=== PATIENT | female | born 1945 | race Caucasian/White ===

== ENCOUNTER 2017-11-04 07:52 | Emergency (ER) | payer MEDICARE ==
--- NOTE | 2017-11-04 07:53 | UC ---
Shortness of Breath HPI - HPI Summary HPI Summary: 72 year old female presents with severe shortness of breath. - History of Current Complaint Stated Complaint: SOB Time Seen by Provider: 11/04/17 07:53 Hx Obtained From: Patient Onset/Duration: Sudden Onset Current Severity: Moderate Aggrevating Factors: Deep Breaths Alleviating Factors: Bronchodilators Associated Signs & Symptoms: Positive: Cough (Productive) - Allergy/Home Medications Allergies/Adverse Reactions: Allergies Allergy/AdvReac Type Severity Reaction Status Date / Time No Known Allergies Allergy Verified 11/04/17 08:04 PMH/Surg Hx/FS Hx/Imm Hx Previously Healthy: Yes Other History Of: Negative For: HIV, Hepatitis B, Hepatitis C, Anticoagulant Therapy - Surgical History Surgical History: Yes Surgery Procedure, Year, and Place: tubal, teeth extraction, c section - Family History Known Family History: Positive: None, Cardiac Disease Negative: Hypertension - Social History Alcohol Use: None Substance Use Type: None Smoking Status (MU): Former Smoker Type: Cigarettes Amount Used/How Often: 6 cigs per day Length of Time of Smoking/Using Tobacco: 47 years Have You Smoked in the Last Year: No When Did the Patient Quit Smoking/Using Tobacco: 14 MOS AGO Household Exposure Type: Cigarettes Review of Systems Constitutional: Negative Skin: Negative Eyes: Negative ENT: Negative Respiratory: Shortness Of Breath, Cough Cardiovascular: Negative Gastrointestinal: Negative Genitourinary: Negative Motor: Negative Neurovascular: Negative Musculoskeletal: Negative Neurological: Negative Psychological: Negative All Other Systems Reviewed And Are Negative: Yes Physical Exam Triage Information Reviewed: Yes Vital Signs Reviewed: Yes Eye Exam: Normal ENT: Positive: Pharyngeal erythema, Nasal congestion, Nasal drainage, Sinus tenderness Dental Exam: Normal Neck exam: Normal Neck: Positive: 1 Respiratory: Positive: Respiratory distress, Rhonchi, Wheezing Cardiovascular Exam: Normal Abdominal Exam: Normal Musculoskeletal Exam: Normal Neurological Exam: Normal Psychological Exam: Normal Skin Exam: Normal Shortness of Breath Dx - Differential Dx/Diagnosis Provider Diagnoses: cough. copd exacerbation Discharge - Discharge Plan Condition: Stable Disposition: OTHER Discharge Disposition Comment: patient suggested to go to the er Patient Education Materials: COPD (Chronic Obstructive Pulmonary Disease) (ED) , Dyspnea (ED) Referrals: Gabriela AQUINO,King Loya [Primary Care Provider] - Additional Instructions: patient suggested to go to the er for severe copd exacerbation
[2017-11-04] MEDS ORDERED: methylPREDNISolone 125 MG* 2 ML VIAL IM ONE (07:56)
[2017-11-04] MEDS ORDERED: Albuterol/Ipratropium NEB.SOL* Albuterol 2.5 MG/Ipratropium 0.5 MG 3 ML INH ONE (07:56)
[2017-11-04 08:03] VITALS: BP 163/88
[2017-11-04] MEDS ORDERED: Albuterol 2.5 MG/3 ML NEB.SOL* (0.083%) INH ONE ×2 (08:25→08:50)
== END 2017-11-04 08:38 ==
LOC: UCEAST 07:52
DX: J44.1 Chronic obstructive pulmonary disease with (acute) exacerbation (principal); R05 Cough; Z87.891 Personal history of nicotine dependence
CPT/HCPCS: 96372; 99213; A9270-GY; G0463; J2930

== ENCOUNTER 2017-11-04 09:23 | Inpatient (IN) | payer MEDICARE ==
[2017-11-04] MEDS ORDERED: methylPREDNISolone 125 MG* 2 ML VIAL IV ONE (09:35)
[2017-11-04 10:08] LABS: ABS Basophils 0.1 10^3/ul (0-0.2); ABS Eosinophils 0.1 10^3/ul (0-0.6); ABS Lymphocytes 0.8 10^3/ul (1.0-4.8); ABS Monocytes 0.7 10^3/ul (0-0.8); ABS Neutrophils 11.9 10^3/ul (1.5-7.7); ABS Nucleated RBC 0.01 10^3/ul; Eosinophil % 0.6 % (0-6); Hematocrit 40 % (35-47); Hemoglobin 13.4 g/dl (12.0-16.0); Lymphocyte % 6.1 % (25-47); Mean Corpuscular HGB Conc 33 g/dl (31-36); Mean Corpuscular Hemoglobin 29 pg (27-31); Mean Corpuscular Volume 87 fL (80-97); Mean Platelet Volume 7 um3 (7.4-10.4); Nucleated Red Blood Cells % 0.1; Platelet Count 239 10^3/ul (150-450); Red Blood Count 4.63 10^6/ul (4.0-5.4); Red Cell Distribution Width 14 % (10.5-15); White Blood Count 13.5 10^3/ul (3.5-10.8)
[2017-11-04 10:17] LABS: Urine Appearance Clear; Urine Blood Negative (Negative); Urine Color Yellow; Urine Ketones Trace (Negative); Urine Protein Negative (Negative); Urine Specific Gravity 1.017 (1.010-1.030); Urine Urobilinogen Negative (Negative)
[2017-11-04] MEDS: Albuterol/Ipratropium NEB.SOL* Albuterol 2.5 MG/Ipratropium 0.5 MG 3 ML INH SCH ×2 (10:24→10:25)
--- NOTE | 2017-11-04 10:30 | RAD ---
INDICATION: Shortness of breath. COMPARISON: Similar chest x-ray September 03, 2016 TECHNIQUE: PA and lateral views of the chest were obtained. FINDINGS: The heart and mediastinum are normal in size and contour. Similar to the prior chest x-ray, the lungs appear hyperaerated and the AP view, there is an increased retrosternal airspace and flattened diaphragm. There is faintly visible patchy density at the lateral right upper lung not definitely seen on the previous chest x-ray. Visualized bones are normal for the patient's age. There is no radiographic evidence of free air beneath the diaphragm IMPRESSION: CHRONIC CHEST X-RAY FINDINGS COULD BE CONSISTENT WITH THE STIGMATA OF OBSTRUCTIVE PULMONARY DISEASE. THERE IS QUESTIONABLE INTERVAL DEVELOPMENT OF PATCHY INFILTRATE AT THE RIGHT UPPER LOBE WHICH COULD BE ATYPICAL PNEUMONIA ACCORDING TO THIS PATIENT'S DEMOGRAPHIC.
[2017-11-04] MEDS ORDERED: Levofloxacin 750 MG IVPREMIX(* 750 MG/150 ML BAG IVPB ONE (11:03)
[2017-11-04] MEDS ORDERED: guaiFENesin LIQ* 100 MG/5 ML UDC PO PRN (12:40)
[2017-11-04] MEDS ORDERED: Albuterol/Ipratropium NEB.SOL* Albuterol 2.5 MG/Ipratropium 0.5 MG 3 ML INH PRN (12:40)
[2017-11-04] MEDS ORDERED: Acetaminophen TAB* 325 MG PO PRN (12:40)
[2017-11-04] MEDS ORDERED: NS 0.9% 1000 ML* 1,000 ML IV SCH ×2 (12:45→19:45)
[2017-11-04] MEDS: NS 0.9% 1000 ML* 2,000 ML IV ONE ×2 (12:46→15:23)
--- NOTE | 2017-11-04 13:16 | ED ---
Lewis Rodriguez Tecjoon, scribed for Santana Crowe MD on 11/04/17 at 1005 . HPI Cardiac - HPI Summary HPI Summary: This patient is a 72 year old female presenting to [facility] with a chief complaint of SOB since 4 days ago. Patient states he was referred to the ED by [facility]. Symptoms aggravated by exertion. Symptoms alleviated by sitting still. Patient additionally reports a non-productive cough, mild chest pain. Patient denies fever. Right before exam, nurse states that her O2 saturation reach 82%. Patient has a history of COPD and asthma. Patient received 2 Albuterol treatment in [facility]. care. - History of Current Complaint Chief Complaint: EDShortnessOfBreath Stated Complaint: DIFFICULTY BREATHING Time Seen by Provider: 11/04/17 09:35 Hx Obtained From: Patient Onset/Duration: Started Days Ago, Still Present - 4 Timing: Intermittent Current Severity: Mild Pain Intensity: 0 Pain Scale Used: 0-10 Numeric Chest Pain Location: Left Anterior Aggravating Factor(s): Exertion Alleviating Factor(s): Rest Associated Signs and Symptoms: Positive: Negative - fever, Other: - non- productive cough, mild chest pain - Allergy/Home Medications Allergies/Adverse Reactions: Allergies Allergy/AdvReac Type Severity Reaction Status Date / Time No Known Allergies Allergy Verified 11/04/17 09:32 Home Medications: Home Medications Albuterol HFA INHALER* 2 puff INH Q4HR PRN 11/04/17 [History Confirmed 11/04/17] Symbicort 160/4.5 (NF) 2 puff INH BID 11/04/17 [History Confirmed 11/04/17] PMH/Surg Hx/FS Hx/Imm Hx Previously Healthy: No Endocrine/Hematology History: Denies: Hx Anticoagulant Therapy, Hx Diabetes, Hx Thyroid Disease Cardiovascular History: Denies: Hx Congestive Heart Failure, Hx Deep Vein Thrombosis, Hx Hypertension , Hx Myocardial Infarction, Hx Pacemaker/ICD Respiratory History: Reports: Hx Asthma, Hx Chronic Obstructive Pulmonary Disease (COPD) Denies: Hx Lung Cancer, Hx Pneumonia, Hx Pulmonary Embolism GI History: Reports: Other GI Disorders - wt loss Denies: Hx Gall Bladder Disease, Hx Gastrointestinal Bleed, Hx Ulcer, Hx Urosepsis History: Denies: Hx Kidney Stones, Hx Renal Disease Musculoskeletal History: Reports: Hx Rheumatoid Arthritis - not on meds Neurological History: Reports: Hx Migraine Denies: Hx Dementia, Hx Seizures, Hx Transient Ischemic Attacks (TIA) Psychiatric History: Denies: Hx Anxiety, Hx Depression, Hx Schizophrenia, Hx Bipolar Disorder - Surgical History Surgery Procedure, Year, and Place: tubal, teeth extraction, c section Infectious Disease History: No Infectious Disease History: Denies: Hx Clostridium Difficile, Hx Hepatitis, Hx Human Immunodeficiency Virus (HIV), Hx of Known/Suspected MRSA, Hx Shingles, Hx Tuberculosis, Hx Known/ Suspected VRE, Hx Known/Suspected VRSA, History Other Infectious Disease, Traveled Outside the [place] in Last 30 Days - Family History Known Family History: Positive: Cardiac Disease Negative: Hypertension - Social History Alcohol Use: None Hx Substance Use: No Substance Use Type: Reports: None Hx Tobacco Use: Yes Smoking Status (MU): Former Smoker Type: Cigarettes Amount Used/How Often: 6 cigs per day Length of Time of Smoking/Using Tobacco: 47 years Have You Smoked in the Last Year: No Review of Systems Negative: Fever Positive: Chest Pain Positive: Shortness Of Breath, Cough All Other Systems Reviewed And Are Negative: Yes Physical Exam - Summary Physical Exam Summary: VITAL SIGNS: Reviewed. GENERAL: Patient is a well-developed and nourished female who is lying comfortable in the stretcher. Patient is not in any acute respiratory distress. HEAD AND FACE: No signs of trauma. No ecchymosis, hematomas or skull depressions. No sinus tenderness. EYES: PERRLA, EOMI x 2, No injected conjunctiva, no nystagmus. EARS: Hearing grossly intact. Ear canals and tympanic membranes are within normal limits. MOUTH: Oropharynx within normal limits. NECK: Supple, trachea is midline, no adenopathy, no JVD, no carotid bruit, no c- spine tenderness, neck with full ROM. CHEST: Symmetric, no tenderness at palpation LUNGS: Bilateral wheezing. CVS: Regular rate and rhythm, S1 and S2 present, no murmurs or gallops appreciated. ABDOMEN: Soft, non-tender. No signs of distention. No rebound no guarding, and no masses palpated. Bowel sounds are normal. EXTREMITIES: FROM in all major joints, no edema, no cyanosis or clubbing. NEURO: Alert and oriented x 3. No acute neurological deficits. Speech is normal and follows commands. SKIN: Dry and warm Triage Information Reviewed: Yes Vital Signs On Initial Exam: Initial Vitals Temp Pulse Resp BP Pulse Ox 98.6 F 112 18 139/66 93 11/04/17 09:28 11/04/17 09:28 11/04/17 09:28 11/04/17 09:28 11/04/17 09:28 Vital Signs Reviewed: Yes - Dania Coma Scale Coma Scale Total: 15 Diagnostics - Vital Signs Vital Signs Temp Pulse Resp BP Pulse Ox 11/04/17 09:45 14 11/04/17 09:42 117 149/77 89 11/04/17 09:28 98.6 F 112 18 139/66 93 - Laboratory Lab Results: Lab Results 11/04/17 11/04/17 11/04/17 Range/Units 09:58 09:58 09:58 WBC (3.5-10.8) 10^3/ul RBC (4.0-5.4) 10^6/ul Hgb (12.0-16.0) g/dl Hct (35-47) % MCV (80-97) fL MCH (27-31) pg MCHC (31-36) g/dl RDW (10.5-15) % Plt Count (150-450) 10^3/ul MPV (7.4-10.4) um3 Neut % (Auto) (38-83) % Lymph % (Auto) (25-47) % [place] % (Auto) (1-9) % Eos % (Auto) (0-6) % Baso % (Auto) (0-2) % Absolute Neuts (auto) (1.5-7.7) 10^3/ul Absolute Lymphs (auto) (1.0-4.8) 10^3/ul Absolute Monos (auto) (0-0.8) 10^3/ul Absolute Eos (auto) (0-0.6) 10^3/ul Absolute Basos (auto) (0-0.2) 10^3/ul Absolute Nucleated RBC 10^3/ul Nucleated RBC % APTT 30.7 (26.0-36.3) seconds Sodium 136 (133-145) mmol/L Potassium 3.8 (3.5-5.0) mmol/L Chloride 100 L (101-111) mmol/L Carbon Dioxide 29 (22-32) mmol/L Anion Gap 7 (2-11) mmol/L BUN 7 (6-24) mg/dL Creatinine 0.61 (0.51-0.95) mg/dL Est GFR ( Amer) 124.7 (>60) Est GFR (Non-Af Amer) 97.0 (>60) BUN/Creatinine Ratio 11.5 (8-20) Glucose 134 H (70-100) mg/dL Lactic Acid (0.5-2.0) mmol/L Calcium 9.3 (8.6-10.3) mg/dL Total Bilirubin 0.40 (0.2-1.0) mg/dL AST 26 (13-39) U/L ALT 29 (7-52) U/L Alkaline Phosphatase 82 (34-104) U/L Troponin I 0.01 (<0.04) ng/mL C-Reactive Protein 69.09 H (< 5.00) mg/L B-Natriuretic Peptide 73 ( - 100) pg/mL Total Protein 7.3 (6.4-8.9) g/dL Albumin 3.9 (3.2-5.2) g/dL Globulin 3.4 (2-4) g/dL Albumin/Globulin Ratio 1.1 (1-3) Urine Color Urine Appearance Urine pH (5-9) Ur Specific Elmo (1.010-1.030) Urine Protein (Negative) Urine Ketones (Negative) Urine Blood (Negative) Urine Nitrate (Negative) Urine Bilirubin (Negative) Urine Urobilinogen (Negative) Ur Leukocyte Esterase (Negative) Urine Glucose (Negative) Influenza A (Rapid) (Negative) Influenza B (Rapid) (Negative) 11/04/17 11/04/17 11/04/17 Range/Units 09:58 09:58 09:58 WBC 13.5 H (3.5-10.8) 10^3/ul RBC 4.63 (4.0-5.4) 10^6/ul Hgb 13.4 (12.0-16.0) g/dl Hct 40 (35-47) % MCV 87 (80-97) fL MCH 29 (27-31) pg MCHC 33 (31-36) g/dl RDW 14 (10.5-15) % Plt Count 239 (150-450) 10^3/ul MPV 7 L (7.4-10.4) um3 Neut % (Auto) 87.8 H (38-83) % Lymph % (Auto) 6.1 L (25-47) % [place] % (Auto) 4.9 (1-9) % Eos % (Auto) 0.6 (0-6) % Baso % (Auto) 0.6 (0-2) % Absolute Neuts (auto) 11.9 H (1.5-7.7) 10^3/ul Absolute Lymphs (auto) 0.8 L (1.0-4.8) 10^3/ul Absolute Monos (auto) 0.7 (0-0.8) 10^3/ul Absolute Eos (auto) 0.1 (0-0.6) 10^3/ul Absolute Basos (auto) 0.1 (0-0.2) 10^3/ul Absolute Nucleated RBC 0.01 10^3/ul Nucleated RBC % 0.1 APTT (26.0-36.3) seconds Sodium (133-145) mmol/L Potassium (3.5-5.0) mmol/L Chloride (101-111) mmol/L Carbon Dioxide (22-32) mmol/L Anion Gap (2-11) mmol/L BUN (6-24) mg/dL Creatinine (0.51-0.95) mg/dL Est GFR ( Amer) (>60) Est GFR (Non-Af Amer) (>60) BUN/Creatinine Ratio (8-20) Glucose (70-100) mg/dL Lactic Acid 1.1 (0.5-2.0) mmol/L Calcium (8.6-10.3) mg/dL Total Bilirubin (0.2-1.0) mg/dL AST (13-39) U/L ALT (7-52) U/L Alkaline Phosphatase (34-104) U/L Troponin I (<0.04) ng/mL C-Reactive Protein (< 5.00) mg/L B-Natriuretic Peptide ( - 100) pg/mL Total Protein (6.4-8.9) g/dL Albumin (3.2-5.2) g/dL Globulin (2-4) g/dL Albumin/Globulin Ratio (1-3) Urine Color Yellow Urine Appearance Clear Urine pH 6.0 (5-9) Ur Specific Elmo 1.017 (1.010-1.030) Urine Protein Negative (Negative) Urine Ketones Trace H (Negative) Urine Blood Negative (Negative) Urine Nitrate Negative (Negative) Urine Bilirubin Negative (Negative) Urine Urobilinogen Negative (Negative) Ur Leukocyte Esterase Negative (Negative) Urine Glucose Negative (Negative) Influenza A (Rapid) (Negative) Influenza B (Rapid) (Negative) 11/04/17 Range/Units 10:22 WBC (3.5-10.8) 10^3/ul RBC (4.0-5.4) 10^6/ul Hgb (12.0-16.0) g/dl Hct (35-47) % MCV (80-97) fL MCH (27-31) pg MCHC (31-36) g/dl RDW (10.5-15) % Plt Count (150-450) 10^3/ul MPV (7.4-10.4) um3 Neut % (Auto) (38-83) % Lymph % (Auto) (25-47) % [place] % (Auto) (1-9) % Eos % (Auto) (0-6) % Baso % (Auto) (0-2) % Absolute Neuts (auto) (1.5-7.7) 10^3/ul Absolute Lymphs (auto) (1.0-4.8) 10^3/ul Absolute Monos (auto) (0-0.8) 10^3/ul Absolute Eos (auto) (0-0.6) 10^3/ul Absolute Basos (auto) (0-0.2) 10^3/ul Absolute Nucleated RBC 10^3/ul Nucleated RBC % APTT (26.0-36.3) seconds Sodium (133-145) mmol/L Potassium (3.5-5.0) mmol/L Chloride (101-111) mmol/L Carbon Dioxide (22-32) mmol/L Anion Gap (2-11) mmol/L BUN (6-24) mg/dL Creatinine (0.51-0.95) mg/dL Est GFR ( Amer) (>60) Est GFR (Non-Af Amer) (>60) BUN/Creatinine Ratio (8-20) Glucose (70-100) mg/dL Lactic Acid (0.5-2.0) mmol/L Calcium (8.6-10.3) mg/dL Total Bilirubin (0.2-1.0) mg/dL AST (13-39) U/L ALT (7-52) U/L Alkaline Phosphatase (34-104) U/L Troponin I (<0.04) ng/mL C-Reactive Protein (< 5.00) mg/L B-Natriuretic Peptide ( - 100) pg/mL Total Protein (6.4-8.9) g/dL Albumin (3.2-5.2) g/dL Globulin (2-4) g/dL Albumin/Globulin Ratio (1-3) Urine Color Urine Appearance Urine pH (5-9) Ur Specific Elmo (1.010-1.030) Urine Protein (Negative) Urine Ketones (Negative) Urine Blood (Negative) Urine Nitrate (Negative) Urine Bilirubin (Negative) Urine Urobilinogen (Negative) Ur Leukocyte Esterase (Negative) Urine Glucose (Negative) Influenza A (Rapid) Negative (Negative) Influenza B (Rapid) Negative (Negative) Result Diagrams: 11/04/17 09:58 11/04/17 09:58 Lab Statement: Any lab studies that have been ordered have been reviewed, and results considered in the medical decision making process. - Radiology CXR Xray Interpretation: Positive (See Comments) - IMPRESSION: CHRONIC CHEST X-RAY FINDINGS COULD BE CONSISTENT WITH THE STIGMATA OF OBSTRUCTIVE PULMONARY DISEASE. THERE IS QUESTIONABLE INTERVAL DEVELOPMENT OF PATCHY INFILTRATE AT THE RIGHT UPPER LOBE WHICH COULD BE ATYPICAL PNEUMONIA ACCORDING TO THIS PATIENT'S DEMOGRAPHIC. ED physician has reviewed this radiology report. Radiology Interpretation Completed By: Radiologist - EKG 0940 Cardiac Rate: Tachycardia EKG Rhythm: Sinus Tachycardia - 105 BPM EKG Interpretation: sinus tachycardia (105 BPM), no st elevation Re-Evaluation - Re-Evaluation First Eval Re-Evaluation Time: 11:44 Comment: Patient is still wheezing. Patient states that she feels marginally better, but is still not feeling well. Disposition - Course Course Of Treatment: This patient is a 72 year old female presenting to [facility] with a chief complaint of SOB since 4 days ago. Patient states he was referred to the ED by [facility]. Symptoms aggravated by exertion. Symptoms alleviated by sitting still. Patient additionally reports a non-productive cough, mild chest pain. Patient denies fever. Right before exam, nurse states that her O2 saturation reach 82%. Patient has a history of COPD and asthma. An EKG, taken 0940, reveals sinus tachycardia (105 BPM), no ST elevation. CXR reveals, per radiologist, IMPRESSION: CHRONIC CHEST X-RAY FINDINGS COULD BE CONSISTENT WITH THE STIGMATA OF OBSTRUCTIVE PULMONARY DISEASE. THERE IS QUESTIONABLE INTERVAL DEVELOPMENT OF PATCHY INFILTRATE AT THE RIGHT UPPER LOBE WHICH COULD BE ATYPICAL PNEUMONIA ACCORDING TO THIS PATIENT'S DEMOGRAPHIC. ED physician has reviewed this radiology report. Bloodwork Obtained. In the ED course the patient was given methylprednisolone, albuterol. At Re-eval (1144), patient is still wheezing. Patient states that she feels marginally better, but is still not feeling well. We discussed patient care with Dr. Bhardwaj (Hospitalist) at 1218 and they agreed to accept the patient. Patient will be diagnosed with COPD exacerbation and pneumonia and admitted to the hospital. - Differential Dx - Cardiopulmonary Differential Diagnoses - Cardiopulmonary: Asthma, Bronchitis, CHF, Exacerbation Of COPD - Diagnoses Provider Diagnoses: COPD exacerbation, Pneumonia - Physician Notifications Discussed Care Of Patient With: Tootie Bhardwaj - Hospitalist Time Discussed With Above Provider: 12:18 - We discussed patient care with Dr. Bhardwaj (Hospitalist) at 1218 and they agreed to accept the patient. Discharge - Discharge Plan Condition: Stable Disposition: ADMITTED TO [facility] Referrals: Gabriela AQUINO,King Loya [Primary Care Provider] - The documentation as recorded by the Lewis onofre Tecjoon accurately reflects the service I personally performed and the decisions made by , Santana Crowe MD.
[2017-11-04] MEDS: Heparin VIAL(*) 5000 UNITS/ML VIAL (FIVE THOUSAND) SUBCUT SCH ×2 (15:20→21:35)
[2017-11-04] MEDS ORDERED: Diltiazem TAB* 30 MG PO ONE (15:23)
[2017-11-04] MEDS: Mometasone/Formoter 100/5 MDI INH SCH (20:32)
[2017-11-04] MEDS: Diltiazem TAB* 30 MG PO SCH (21:34)
--- NOTE | 2017-11-04 23:36 | HP ---
CC: MIRIAM Boggs * HOSPITAL MEDICINE HISTORY AND PHYSICAL: DATE OF ADMISSION: 11/04/17 PRIMARY CARE PHYSICIAN: MIRIAM Boggs. ATTENDING PHYSICIAN: Tootie Bhardwaj DO * (dictation provided by Agnieszka Greene NP ). CHIEF COMPLAINT: Shortness of breath and cough. HISTORY OF PRESENT ILLNESS: Ms. Arias is a 72-year-old female with a past medical history of COPD, who presents to the hospital today with concern for shortness of breath and cough. Ms. Arias states she is feeling unwell for about a week. She reports having cough that has been nonproductive. She feels that she cannot move around at all without feeling quite dyspneic. 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 She denies any fevers or chills. She has had no nausea, vomiting, diarrhea, or abdominal pain. She reports discomfort on the left side of her chest when she takes a deep breath. In the emergency room, Ms. Arias had chest x-ray which showed a concern for pneumonia. She appeared septic with a heart rate running in the 120s to 140s, and new O2 requirement of 2 L. She also has a leukocytosis of 13 and her CRP is 69.09. The patient was reported to have an O2 saturation of 84% on room air on arrival. Her saturation is now approximately 92% after application of 2 L nasal cannula. PAST MEDICAL HISTORY: 1. Asthma with likely COPD. 2. Rheumatic fever at age 17. 3. History of heart murmur. 4. History of . MEDICATIONS: 1. Albuterol p.r.n. 2. Symbicort 2 puffs inhaled b.i.d. FAMILY HISTORY: The patient reports her mother related to liver cancer. Dad related to heart attack. SOCIAL HISTORY: The patient is a former smoker. She smoked for about 40 years and has had some on and off periods of not smoking. She has been tobacco free for 4 years currently. She denies any alcohol or drug use. She reports that her or her daughter, Emeli, would be the healthcare proxy. REVIEW OF SYMPTOMS: A 14-point review of systems was completed with Ms. Arias and all those not mentioned above were negative. PHYSICAL EXAMINATION GENERAL: Ms. Arias is sitting up on the bed. She is in no acute distress. She appears somewhat tremulous and shaky. VITAL SIGNS: Temperature 98.6, pulse rate running at 140s at the time of my examination, respiratory rate 20, O2 saturation 95% on 2 L nasal cannula, blood pressure 115/64. LUNGS: Have expiratory wheezing bilaterally with no accessory muscle use, somewhat diminished. HEART: S1, S2. No murmurs appreciated today. ABDOMEN: Soft, nontender with bowel sounds positive x4. EXTREMITIES: No cyanosis or edema. NEURO: She is alert. She is oriented x3. She moves all extremities equally. There is no facial asymmetry or focal weakness. Extraocular movements are intact. SKIN: Intact. LABORATORY DATA/DIAGNOSTIC STUDIES: WBC 13.5, hemoglobin 13.4, hematocrit 40 , platelet count 239. Sodium 136, potassium 3.8, chloride 100, serum bicarbonate 29, BUN 7, creatinine 0.61, glucose 134. Lactic acid 1.1. CRP 69.09. Troponin 0.01. Urine shows no evidence of infection. Flu swab is negative. Chest x-ray is read as follows: "Chronic chest x-ray findings could be consistent with a stigmata of obstructive pulmonary disease. There is questionable interval developmental of patchy infiltrate at the right upper lobe , which could be atypical pneumonia according to this patient's demographic." An EKG shows sinus tachycardia with a heart rate running at about 100. ASSESSMENT AND PLAN: Ms. Arias is a 72-year-old female with a past medical history of chronic obstructive pulmonary disease who presents today to the hospital with complaint of cough and shortness of breath, found to have likely pneumonia and chronic obstructive pulmonary disease exacerbation. Our plans are for inpatient admission with expected length of stay to be greater than 2 days for the followin. Sepsis with Pneumonia: The patient does have a concern for an infiltrate on the chest x- ray and she has sepsis with elevated heart rate and white blood cell count, as well as an O2 requirement of 2 L. She will receive IV fluids now at 30 mL/kg. I anticipate this will improve her heart rate. If not, we can address that separately and can order rate control agents such as ditiazem. For pneumonia, she will be treated with ceftriaxone and azithromycin. The patient's lactic acid is normal and blood cultures have been ordered. 2. Chronic obstructive pulmonary disease exacerbation: She has received solumedrol in the emergency department and will continue on prednisone 60 mg starting in the a.m. She will have DuoNeb nebulizers and I have also added on Dulera. The patient is currently requiring 2 L nasal cannula. Oxygen can be titrated as needed. 3. Code status is full code. This was reviewed with the patient at the bedside today. 4. Disposition: To medical floor with telemetry monitoring due to elevated heart rate. TIME SPENT: Approximately 60 minutes were spent on the admission of this patient, more than half of the time was spent with the patient at the bedside reviewing the events leading up to this hospitalization, performing the physical examination, and reviewing my plan of care. AGNIESZKA GREENE NP [id number]/CPS #: [id number] MTDD
[2017-11-05] MEDS: Diltiazem TAB* 30 MG PO SCH ×2 (00:14→05:27)
[2017-11-05] MEDS: Benzonatate CAP* 100 MG PO PRN (05:27)
[2017-11-05] MEDS: Heparin VIAL(*) 5000 UNITS/ML VIAL (FIVE THOUSAND) SUBCUT SCH ×3 (05:28→22:22)
[2017-11-05] MEDS: Mometasone/Formoter 100/5 MDI INH SCH ×2 (07:23→21:17)
[2017-11-05 07:37] LABS: EGFR Non-African American 102.8 (>60)
[2017-11-05] MEDS ORDERED: Azithromycin IV(*) 500 MG in D5W 250 ML BAG* 250 ML IVPB ONE (09:00)
[2017-11-05] MEDS ORDERED: Azithromycin IV(*) 500 MG in NS 0.9% 250 ML* 250 ML IVPB ONE (09:08)
--- NOTE | 2017-11-05 09:55 | PN ---
Subjective Date of Service: 11/05/17 Interval History: Patient seen and examined at bedside. Ms. Arias initially presented to the ED with concern for shortness of breath and cough. Her CXR showed concern for pneumonia and she also had concern for tachycardia and acute hypoxic respiratory failure secondary to pneumonia. Today , she reports feeling better. She is not requiring O2 at rest. She still endorses dyspnea with exertion. Denies fever/chills, CP, SOB at rest, abd pain, n/v. She does state she likes the Dulera inhaler over the Symbicort inhaler she has at home, as "it works better." No other complaints. Family History: Unchanged from Admission Social History: Unchanged from Admission Past Medical History: Unchanged from Admission Objective Active Medications: Acetaminophen (Tylenol Tab*) 650 mg PO Q6H PRN PRN Reason: pain/fever Albuterol/Ipratropium (Duoneb (Albuterol 2.5 Mg/Ipratropium 0.5 Mg)) 1 neb INH Q4H PRN PRN Reason: SOB/WHEEZING Benzonatate (Tessalon Cap*) 100 mg PO BID PRN PRN Reason: COUGH Last Admin: 11/05/17 05:27 Dose: 100 mg Guaifenesin (Robitussin*) 5 ml PO Q6H PRN PRN Reason: COUGH Heparin Sodium (Porcine) (Heparin Vial(*)) 5,000 units SUBCUT Q8HR [facility] Last Admin: 11/05/17 05:28 Dose: 5,000 units Ceftriaxone Sodium 1 gm/ (Sodium Chloride) 50 mls @ 200 mls/hr IVPB Q24H [facility] Azithromycin 250 mg/ Sodium (Chloride) 250 mls @ 250 mls/hr IVPB Q24H [facility] Stop: 11/10/17 08:59 Azithromycin 500 mg/ Sodium (Chloride) 250 mls @ 250 mls/hr IVPB ONCE ONE Stop: 11/05/17 09:59 Mometasone Furoate/Formoterol Fumar (Dulera 100/5 Mdi*) 2 puff INH BID [facility] Last Admin: 11/05/17 07:23 Dose: 2 puff Prednisone (Deltasone Tab*) 60 mg PO DAILY [facility] Vital Signs - 8 hr 11/05/17 11/05/17 03:19 05:20 Temperature 98.1 F 97.5 F Pulse Rate 85 81 Respiratory 17 20 Rate Blood Pressure 106/58 106/56 (mmHg) O2 Sat by Pulse 92 92 Oximetry Oxygen Devices in Use Now: None Appearance: Older female, sitting in bed, in NAD Eyes: No Scleral Icterus, PERRLA Ears/Nose/Mouth/Throat: Clear Oropharnyx, Mucous Membranes Moist Neck: NL Appearance and Movements; NL JVP Respiratory: Symmetrical Chest Expansion and Respiratory Effort, - - diminished with expiratory wheezes Cardiovascular: NL Sounds; No Murmurs; No JVD, RRR, No Edema Abdominal: NL Sounds; No Tenderness; No Distention Extremities: No Clubbing, Cyanosis Skin: No Rash or Ulcers Neurological: Alert and Oriented x 3, NL Muscle Strength and Tone Lines/Tubes/Other Access: Clean, Dry and Intact Peripheral IV Nutrition: Taking PO's Result Diagrams: 11/04/17 09:58 11/05/17 06:52 Additional Lab and Data: Lab Results 11/04/17 11/04/17 11/04/17 Range/Units 09:58 09:58 09:58 WBC (3.5-10.8) 10^3/ul RBC (4.0-5.4) 10^6/ul Hgb (12.0-16.0) g/dl Hct (35-47) % MCV (80-97) fL MCH (27-31) pg MCHC (31-36) g/dl RDW (10.5-15) % Plt Count (150-450) 10^3/ul MPV (7.4-10.4) um3 Neut % (Auto) (38-83) % Lymph % (Auto) (25-47) % [place] % (Auto) (1-9) % Eos % (Auto) (0-6) % Baso % (Auto) (0-2) % Absolute Neuts (auto) (1.5-7.7) 10^3/ul Absolute Lymphs (auto) (1.0-4.8) 10^3/ul Absolute Monos (auto) (0-0.8) 10^3/ul Absolute Eos (auto) (0-0.6) 10^3/ul Absolute Basos (auto) (0-0.2) 10^3/ul Absolute Nucleated RBC 10^3/ul Nucleated RBC % APTT 30.7 (26.0-36.3) seconds Sodium 136 (133-145) mmol/L Potassium 3.8 (3.5-5.0) mmol/L Chloride 100 L (101-111) mmol/L Carbon Dioxide 29 (22-32) mmol/L Anion Gap 7 (2-11) mmol/L BUN 7 (6-24) mg/dL Creatinine 0.61 (0.51-0.95) mg/dL Est GFR ( Amer) 124.7 (>60) Est GFR (Non-Af Amer) 97.0 (>60) BUN/Creatinine Ratio 11.5 (8-20) Glucose 134 H (70-100) mg/dL Lactic Acid (0.5-2.0) mmol/L Calcium 9.3 (8.6-10.3) mg/dL Total Bilirubin 0.40 (0.2-1.0) mg/dL AST 26 (13-39) U/L ALT 29 (7-52) U/L Alkaline Phosphatase 82 (34-104) U/L Troponin I 0.01 (<0.04) ng/mL C-Reactive Protein 69.09 H (< 5.00) mg/L B-Natriuretic Peptide 73 ( - 100) pg/mL Total Protein 7.3 (6.4-8.9) g/dL Albumin 3.9 (3.2-5.2) g/dL Globulin 3.4 (2-4) g/dL Albumin/Globulin Ratio 1.1 (1-3) Urine Color Urine Appearance Urine pH (5-9) Ur Specific [place] (1.010-1.030) Urine Protein (Negative) Urine Ketones (Negative) Urine Blood (Negative) Urine Nitrate (Negative) Urine Bilirubin (Negative) Urine Urobilinogen (Negative) Ur Leukocyte Esterase (Negative) Urine Glucose (Negative) Influenza A (Rapid) (Negative) Influenza B (Rapid) (Negative) 11/04/17 11/04/17 11/04/17 Range/Units 09:58 09:58 09:58 WBC 13.5 H (3.5-10.8) 10^3/ul RBC 4.63 (4.0-5.4) 10^6/ul Hgb 13.4 (12.0-16.0) g/dl Hct 40 (35-47) % MCV 87 (80-97) fL MCH 29 (27-31) pg MCHC 33 (31-36) g/dl RDW 14 (10.5-15) % Plt Count 239 (150-450) 10^3/ul MPV 7 L (7.4-10.4) um3 Neut % (Auto) 87.8 H (38-83) % Lymph % (Auto) 6.1 L (25-47) % [place] % (Auto) 4.9 (1-9) % Eos % (Auto) 0.6 (0-6) % Baso % (Auto) 0.6 (0-2) % Absolute Neuts (auto) 11.9 H (1.5-7.7) 10^3/ul Absolute Lymphs (auto) 0.8 L (1.0-4.8) 10^3/ul Absolute Monos (auto) 0.7 (0-0.8) 10^3/ul Absolute Eos (auto) 0.1 (0-0.6) 10^3/ul Absolute Basos (auto) 0.1 (0-0.2) 10^3/ul Absolute Nucleated RBC 0.01 10^3/ul Nucleated RBC % 0.1 APTT (26.0-36.3) seconds Sodium (133-145) mmol/L Potassium (3.5-5.0) mmol/L Chloride (101-111) mmol/L Carbon Dioxide (22-32) mmol/L Anion Gap (2-11) mmol/L BUN (6-24) mg/dL Creatinine (0.51-0.95) mg/dL Est GFR ( Amer) (>60) Est GFR (Non-Af Amer) (>60) BUN/Creatinine Ratio (8-20) Glucose (70-100) mg/dL Lactic Acid 1.1 (0.5-2.0) mmol/L Calcium (8.6-10.3) mg/dL Total Bilirubin (0.2-1.0) mg/dL AST (13-39) U/L ALT (7-52) U/L Alkaline Phosphatase (34-104) U/L Troponin I (<0.04) ng/mL C-Reactive Protein (< 5.00) mg/L B-Natriuretic Peptide ( - 100) pg/mL Total Protein (6.4-8.9) g/dL Albumin (3.2-5.2) g/dL Globulin (2-4) g/dL Albumin/Globulin Ratio (1-3) Urine Color Yellow Urine Appearance Clear Urine pH 6.0 (5-9) Ur Specific [place] 1.017 (1.010-1.030) Urine Protein Negative (Negative) Urine Ketones Trace H (Negative) Urine Blood Negative (Negative) Urine Nitrate Negative (Negative) Urine Bilirubin Negative (Negative) Urine Urobilinogen Negative (Negative) Ur Leukocyte Esterase Negative (Negative) Urine Glucose Negative (Negative) Influenza A (Rapid) (Negative) Influenza B (Rapid) (Negative) 11/04/17 Range/Units 10:22 WBC (3.5-10.8) 10^3/ul RBC (4.0-5.4) 10^6/ul Hgb (12.0-16.0) g/dl Hct (35-47) % MCV (80-97) fL MCH (27-31) pg MCHC (31-36) g/dl RDW (10.5-15) % Plt Count (150-450) 10^3/ul MPV (7.4-10.4) um3 Neut % (Auto) (38-83) % Lymph % (Auto) (25-47) % [place] % (Auto) (1-9) % Eos % (Auto) (0-6) % Baso % (Auto) (0-2) % Absolute Neuts (auto) (1.5-7.7) 10^3/ul Absolute Lymphs (auto) (1.0-4.8) 10^3/ul Absolute Monos (auto) (0-0.8) 10^3/ul Absolute Eos (auto) (0-0.6) 10^3/ul Absolute Basos (auto) (0-0.2) 10^3/ul Absolute Nucleated RBC 10^3/ul Nucleated RBC % APTT (26.0-36.3) seconds Sodium (133-145) mmol/L Potassium (3.5-5.0) mmol/L Chloride (101-111) mmol/L Carbon Dioxide (22-32) mmol/L Anion Gap (2-11) mmol/L BUN (6-24) mg/dL Creatinine (0.51-0.95) mg/dL Est GFR ( Amer) (>60) Est GFR (Non-Af Amer) (>60) BUN/Creatinine Ratio (8-20) Glucose (70-100) mg/dL Lactic Acid (0.5-2.0) mmol/L Calcium (8.6-10.3) mg/dL Total Bilirubin (0.2-1.0) mg/dL AST (13-39) U/L ALT (7-52) U/L Alkaline Phosphatase (34-104) U/L Troponin I (<0.04) ng/mL C-Reactive Protein (< 5.00) mg/L B-Natriuretic Peptide ( - 100) pg/mL Total Protein (6.4-8.9) g/dL Albumin (3.2-5.2) g/dL Globulin (2-4) g/dL Albumin/Globulin Ratio (1-3) Urine Color Urine Appearance Urine pH (5-9) Ur Specific [place] (1.010-1.030) Urine Protein (Negative) Urine Ketones (Negative) Urine Blood (Negative) Urine Nitrate (Negative) Urine Bilirubin (Negative) Urine Urobilinogen (Negative) Ur Leukocyte Esterase (Negative) Urine Glucose (Negative) Influenza A (Rapid) Negative (Negative) Influenza B (Rapid) Negative (Negative) Assess/Plan/Problems-Billing Assessment: Ms. Arias is a 72 yo female with a PMH of asthma and likely COPD who presented on 11/04/17 with concern for dyspnea and cough that is secondary to community acquired PNA with RUL involvement. - Patient Problems (1) Community acquired pneumonia Code(s): J18.9 - PNEUMONIA, UNSPECIFIED ORGANISM Comment: RUL infiltrate seen on CXR Continue ceftriaxone, azithromycin Influenza negative (2) Acute respiratory failure with hypoxia Code(s): J96.01 - ACUTE RESPIRATORY FAILURE WITH HYPOXIA Comment: Improving Likely secondary to CAP Continue antibiotics, prn O2, nebulizers, prednisone (3) Sepsis Comment: On admission, meeting SOFA requirements with tachypnea (qSOFA score 1) and MAP < 70. On admission, meeting SIRS requirements with tachycardia, leukocytosis, hypoxia. Source is pneumonia Blood cultures pending (4) Tachycardia Code(s): R00.0 - TACHYCARDIA, UNSPECIFIED Comment: Resolved Suspect secondary to sepsis and pneumonia, as well as albuterol D/c diltiazem, continue to monitor (5) COPD (chronic obstructive pulmonary disease) Code(s): J44.9 - CHRONIC OBSTRUCTIVE PULMONARY DISEASE, UNSPECIFIED Comment: Suspected, likely with exacerbation Improving Patient will need PFTs to confirm diagnosis once treated for CAP and lung function recovers Continue prednisone, nebulizers, Dulera O2 as needed, wean when able (6) DVT prophylaxis Comment: SQ heparin Status and Disposition: Inpatient. Discharge to home when medically stable.
[2017-11-05] MEDS: predniSONE TAB* 20 MG PO SCH (10:23)
[2017-11-05] MEDS: cefTRIAXone(*) 1 GM in NS 0.9% 50 ML* 50 ML IVPB SCH (11:49)
[2017-11-05] MEDS ORDERED: Ondansetron ODT TAB* 4 MG SL PRN (11:53)
[2017-11-05] MEDS ORDERED: Ondansetron ODT TAB* 4 MG ONE (12:09)
[2017-11-06] MEDS: Benzonatate CAP* 100 MG PO PRN (03:37)
[2017-11-06] MEDS: Heparin VIAL(*) 5000 UNITS/ML VIAL (FIVE THOUSAND) SUBCUT SCH ×2 (06:04→13:28)
[2017-11-06 07:00] LABS: ABS Basophils 0 10^3/ul (0-0.2); ABS Eosinophils 0 10^3/ul (0-0.6); ABS Lymphocytes 1.5 10^3/ul (1.0-4.8); ABS Monocytes 1.2 10^3/ul (0-0.8); ABS Nucleated RBC 0 10^3/ul; Eosinophil % 0.1 % (0-6); Hematocrit 37 % (35-47); Lymphocyte % 12.9 % (25-47); Mean Corpuscular HGB Conc 33 g/dl (31-36); Mean Corpuscular Hemoglobin 29 pg (27-31); Mean Corpuscular Volume 88 fL (80-97); Mean Platelet Volume 7 um3 (7.4-10.4); Nucleated Red Blood Cells % 0; Platelet Count 253 10^3/ul (150-450); Red Blood Count 4.14 10^6/ul (4.0-5.4); Red Cell Distribution Width 13 % (10.5-15); White Blood Count 11.7 10^3/ul (3.5-10.8)
[2017-11-06] MEDS: predniSONE TAB* 20 MG PO SCH ×2 (08:30→11:31)
[2017-11-06] MEDS: cefTRIAXone(*) 1 GM in NS 0.9% 50 ML* 50 ML IVPB SCH (08:30)
[2017-11-06] MEDS: Mometasone/Formoter 100/5 MDI INH SCH (08:32)
[2017-11-06] MEDS ORDERED: Azithromycin IV(*) 250 MG in NS 0.9% 250 ML* 250 ML IVPB SCH (09:00)
--- NOTE | 2017-11-06 12:14 | PN ---
Subjective Date of Service: 11/06/17 Family History: Unchanged from Admission Social History: Unchanged from Admission Past Medical History: Unchanged from Admission Objective Active Medications: Acetaminophen (Tylenol Tab*) 650 mg PO Q6H PRN PRN Reason: pain/fever Albuterol/Ipratropium (Duoneb (Albuterol 2.5 Mg/Ipratropium 0.5 Mg)) 1 neb INH Q4H PRN PRN Reason: SOB/WHEEZING Last Admin: 11/06/17 03:42 Dose: 1 neb Benzonatate (Tessalon Cap*) 100 mg PO BID PRN PRN Reason: COUGH Last Admin: 11/06/17 03:37 Dose: 100 mg Guaifenesin (Robitussin*) 5 ml PO Q6H PRN PRN Reason: COUGH Heparin Sodium (Porcine) (Heparin Vial(*)) 5,000 units SUBCUT Q8HR [facility] Last Admin: 11/06/17 06:04 Dose: 5,000 units Ceftriaxone Sodium 1 gm/ (Sodium Chloride) 50 mls @ 200 mls/hr IVPB Q24H [facility] Last Admin: 11/06/17 08:30 Dose: 200 mls/hr Azithromycin 250 mg/ Sodium (Chloride) 250 mls @ 250 mls/hr IVPB Q24H [facility] Stop: 11/10/17 08:59 Last Admin: 11/06/17 09:33 Dose: 250 mls/hr Mometasone Furoate/Formoterol Fumar (Dulera 100/5 Mdi*) 2 puff INH BID [facility] Last Admin: 11/06/17 08:32 Dose: 2 puff Ondansetron HCl (Zofran Odt Tab*) 4 mg SL Q6H PRN PRN Reason: NAUSEA/VOMITING Last Admin: 11/05/17 12:11 Dose: 4 mg Prednisone (Deltasone Tab*) 60 mg PO DAILY [facility] Last Admin: 11/06/17 08:30 Dose: 60 mg Vital Signs - 8 hr 11/06/17 11/06/17 11/06/17 07:41 08:34 08:35 Temperature 97.5 F Pulse Rate 53 55 Respiratory 18 18 Rate Blood Pressure 142/69 (mmHg) O2 Sat by Pulse 98 98 98 Oximetry Oxygen Devices in Use Now: Nasal Cannula Result Diagrams: 11/06/17 06:29 11/05/17 06:52 Additional Lab and Data: Lab Results 11/04/17 11/04/17 11/04/17 Range/Units 09:58 09:58 09:58 WBC (3.5-10.8) 10^3/ul RBC (4.0-5.4) 10^6/ul Hgb (12.0-16.0) g/dl Hct (35-47) % MCV (80-97) fL MCH (27-31) pg MCHC (31-36) g/dl RDW (10.5-15) % Plt Count (150-450) 10^3/ul MPV (7.4-10.4) um3 Neut % (Auto) (38-83) % Lymph % (Auto) (25-47) % [place] % (Auto) (1-9) % Eos % (Auto) (0-6) % Baso % (Auto) (0-2) % Absolute Neuts (auto) (1.5-7.7) 10^3/ul Absolute Lymphs (auto) (1.0-4.8) 10^3/ul Absolute Monos (auto) (0-0.8) 10^3/ul Absolute Eos (auto) (0-0.6) 10^3/ul Absolute Basos (auto) (0-0.2) 10^3/ul Absolute Nucleated RBC 10^3/ul Nucleated RBC % APTT 30.7 (26.0-36.3) seconds Sodium 136 (133-145) mmol/L Potassium 3.8 (3.5-5.0) mmol/L Chloride 100 L (101-111) mmol/L Carbon Dioxide 29 (22-32) mmol/L Anion Gap 7 (2-11) mmol/L BUN 7 (6-24) mg/dL Creatinine 0.61 (0.51-0.95) mg/dL Est GFR ( Amer) 124.7 (>60) Est GFR (Non-Af Amer) 97.0 (>60) BUN/Creatinine Ratio 11.5 (8-20) Glucose 134 H (70-100) mg/dL Lactic Acid (0.5-2.0) mmol/L Calcium 9.3 (8.6-10.3) mg/dL Total Bilirubin 0.40 (0.2-1.0) mg/dL AST 26 (13-39) U/L ALT 29 (7-52) U/L Alkaline Phosphatase 82 (34-104) U/L Troponin I 0.01 (<0.04) ng/mL C-Reactive Protein 69.09 H (< 5.00) mg/L B-Natriuretic Peptide 73 ( - 100) pg/mL Total Protein 7.3 (6.4-8.9) g/dL Albumin 3.9 (3.2-5.2) g/dL Globulin 3.4 (2-4) g/dL Albumin/Globulin Ratio 1.1 (1-3) Urine Color Urine Appearance Urine pH (5-9) Ur Specific [place] (1.010-1.030) Urine Protein (Negative) Urine Ketones (Negative) Urine Blood (Negative) Urine Nitrate (Negative) Urine Bilirubin (Negative) Urine Urobilinogen (Negative) Ur Leukocyte Esterase (Negative) Urine Glucose (Negative) Influenza A (Rapid) (Negative) Influenza B (Rapid) (Negative) 11/04/17 11/04/17 11/04/17 Range/Units 09:58 09:58 09:58 WBC 13.5 H (3.5-10.8) 10^3/ul RBC 4.63 (4.0-5.4) 10^6/ul Hgb 13.4 (12.0-16.0) g/dl Hct 40 (35-47) % MCV 87 (80-97) fL MCH 29 (27-31) pg MCHC 33 (31-36) g/dl RDW 14 (10.5-15) % Plt Count 239 (150-450) 10^3/ul MPV 7 L (7.4-10.4) um3 Neut % (Auto) 87.8 H (38-83) % Lymph % (Auto) 6.1 L (25-47) % [place] % (Auto) 4.9 (1-9) % Eos % (Auto) 0.6 (0-6) % Baso % (Auto) 0.6 (0-2) % Absolute Neuts (auto) 11.9 H (1.5-7.7) 10^3/ul Absolute Lymphs (auto) 0.8 L (1.0-4.8) 10^3/ul Absolute Monos (auto) 0.7 (0-0.8) 10^3/ul Absolute Eos (auto) 0.1 (0-0.6) 10^3/ul Absolute Basos (auto) 0.1 (0-0.2) 10^3/ul Absolute Nucleated RBC 0.01 10^3/ul Nucleated RBC % 0.1 APTT (26.0-36.3) seconds Sodium (133-145) mmol/L Potassium (3.5-5.0) mmol/L Chloride (101-111) mmol/L Carbon Dioxide (22-32) mmol/L Anion Gap (2-11) mmol/L BUN (6-24) mg/dL Creatinine (0.51-0.95) mg/dL Est GFR ( Amer) (>60) Est GFR (Non-Af Amer) (>60) BUN/Creatinine Ratio (8-20) Glucose (70-100) mg/dL Lactic Acid 1.1 (0.5-2.0) mmol/L Calcium (8.6-10.3) mg/dL Total Bilirubin (0.2-1.0) mg/dL AST (13-39) U/L ALT (7-52) U/L Alkaline Phosphatase (34-104) U/L Troponin I (<0.04) ng/mL C-Reactive Protein (< 5.00) mg/L B-Natriuretic Peptide ( - 100) pg/mL Total Protein (6.4-8.9) g/dL Albumin (3.2-5.2) g/dL Globulin (2-4) g/dL Albumin/Globulin Ratio (1-3) Urine Color Yellow Urine Appearance Clear Urine pH 6.0 (5-9) Ur Specific [place] 1.017 (1.010-1.030) Urine Protein Negative (Negative) Urine Ketones Trace H (Negative) Urine Blood Negative (Negative) Urine Nitrate Negative (Negative) Urine Bilirubin Negative (Negative) Urine Urobilinogen Negative (Negative) Ur Leukocyte Esterase Negative (Negative) Urine Glucose Negative (Negative) Influenza A (Rapid) (Negative) Influenza B (Rapid) (Negative) 11/04/17 Range/Units 10:22 WBC (3.5-10.8) 10^3/ul RBC (4.0-5.4) 10^6/ul Hgb (12.0-16.0) g/dl Hct (35-47) % MCV (80-97) fL MCH (27-31) pg MCHC (31-36) g/dl RDW (10.5-15) % Plt Count (150-450) 10^3/ul MPV (7.4-10.4) um3 Neut % (Auto) (38-83) % Lymph % (Auto) (25-47) % [place] % (Auto) (1-9) % Eos % (Auto) (0-6) % Baso % (Auto) (0-2) % Absolute Neuts (auto) (1.5-7.7) 10^3/ul Absolute Lymphs (auto) (1.0-4.8) 10^3/ul Absolute Monos (auto) (0-0.8) 10^3/ul Absolute Eos (auto) (0-0.6) 10^3/ul Absolute Basos (auto) (0-0.2) 10^3/ul Absolute Nucleated RBC 10^3/ul Nucleated RBC % APTT (26.0-36.3) seconds Sodium (133-145) mmol/L Potassium (3.5-5.0) mmol/L Chloride (101-111) mmol/L Carbon Dioxide (22-32) mmol/L Anion Gap (2-11) mmol/L BUN (6-24) mg/dL Creatinine (0.51-0.95) mg/dL Est GFR ( Amer) (>60) Est GFR (Non-Af Amer) (>60) BUN/Creatinine Ratio (8-20) Glucose (70-100) mg/dL Lactic Acid (0.5-2.0) mmol/L Calcium (8.6-10.3) mg/dL Total Bilirubin (0.2-1.0) mg/dL AST (13-39) U/L ALT (7-52) U/L Alkaline Phosphatase (34-104) U/L Troponin I (<0.04) ng/mL C-Reactive Protein (< 5.00) mg/L B-Natriuretic Peptide ( - 100) pg/mL Total Protein (6.4-8.9) g/dL Albumin (3.2-5.2) g/dL Globulin (2-4) g/dL Albumin/Globulin Ratio (1-3) Urine Color Urine Appearance Urine pH (5-9) Ur Specific [place] (1.010-1.030) Urine Protein (Negative) Urine Ketones (Negative) Urine Blood (Negative) Urine Nitrate (Negative) Urine Bilirubin (Negative) Urine Urobilinogen (Negative) Ur Leukocyte Esterase (Negative) Urine Glucose (Negative) Influenza A (Rapid) Negative (Negative) Influenza B (Rapid) Negative (Negative) Microbiology and Other Data: Microbiology 11/04/17 14:47 Aerobic Blood Culture - Preliminary Blood Venous No Growth Day 1 Anaerobic Blood Culture - Preliminary No Growth Day 1 11/04/17 14:42 Aerobic Blood Culture - Preliminary Blood Venous No Growth Day 1 Anaerobic Blood Culture - Preliminary No Growth Day 1 Assess/Plan/Problems-Billing Assessment: Ms. Arias is a 72 yo female with a PMH of asthma and likely COPD who presented on 11/04/17 with concern for dyspnea and cough that is secondary to community acquired PNA with RUL involvement. - Patient Problems (1) Community acquired pneumonia Code(s): J18.9 - PNEUMONIA, UNSPECIFIED ORGANISM Comment: RUL infiltrate seen on CXR Continue ceftriaxone, azithromycin Influenza negative (2) Acute respiratory failure with hypoxia Code(s): J96.01 - ACUTE RESPIRATORY FAILURE WITH HYPOXIA Comment: Improving Likely secondary to CAP Continue antibiotics, prn O2, nebulizers, prednisone (3) Sepsis Comment: On admission, meeting SOFA requirements with tachypnea (qSOFA score 1) and MAP < 70. On admission, meeting SIRS requirements with tachycardia, leukocytosis, hypoxia. Source is pneumonia Blood cultures pending (4) Tachycardia Code(s): R00.0 - TACHYCARDIA, UNSPECIFIED Comment: Resolved Suspect secondary to sepsis and pneumonia, as well as albuterol D/c diltiazem, continue to monitor (5) COPD (chronic obstructive pulmonary disease) Code(s): J44.9 - CHRONIC OBSTRUCTIVE PULMONARY DISEASE, UNSPECIFIED Comment: Suspected, likely with exacerbation Improving Patient will need PFTs to confirm diagnosis once treated for CAP and lung function recovers Continue prednisone, nebulizers, Dulera O2 as needed, wean when able (6) DVT prophylaxis Comment: SQ heparin Status and Disposition: Inpatient. Discharge to home when medically stable.
[2017-11-06 12:56] VITALS: BP 146/76
--- NOTE | 2017-11-07 05:33 | DS ---
CC: MIRIAM Jonas * DISCHARGE SUMMARY: DATE OF ADMISSION: 11/04/17 DATE OF DISCHARGE: 11/06/17 PROVIDER: Sarah Sosa NP ATTENDING PHYSICIAN: Dr. Christine Jones * (dictated by Sarah Sosa NP). PRIMARY CARE PROVIDER: MIRIAM Jonas PRIMARY DISCHARGE DIAGNOSES: 1. Community-acquired pneumonia. 2. Acute hypoxic respiratory failure. 3. Tachycardia, now resolved. 4. Asthma likely chronic obstructive pulmonary disease. SECONDARY DISCHARGE DIAGNOSES: 1. History of rheumatic fever. 2. History of heart murmur. MEDICATIONS AT DISCHARGE: 1. Albuterol inhaler two puffs inhaled q.4 hours p.r.n. 2. Symbicort 160/4.5 two puffs inhaled b.i.d. 3. Prednisone 40 mg daily x3 more days. 4. Zofran ODT 4 mg sublingual q.8 hours p.r.n. 5. Cefdinir 300 mg b.i.d. 6. Tessalon Perles 100 mg b.i.d. p.r.n. 7. Zithromax 250 mg daily to complete 5-day course. HOSPITAL COURSE OF STAY: For full details, please refer to the H and P provided by Agnieszka Greene NP. In summary, Ms. Arias is a 72-year-old female who presented to the ER with concern for shortness of breath and cough. Chest x-ray showed concern for pneumonia. The patient also met sepsis parameters with elevated heart rate, hypoxia, leukocytosis and elevated CRP. She was started on azithromycin and ceftriaxone with good response. She was also started on prednisone for suspected exacerbation of COPD. She also displayed signs of tachycardia with rates up in the 130s, but showed sinus tachycardia and no signs of AFib or any arrhythmias. She was started on diltiazem and this was discontinued the following day and she was able to maintain heart rates in the 70s to 90s. We were able to wean the patient from oxygen over the course of the first november and the patient was able to stay off of the oxygen overnight into the next day. Ambulating and the patient's O2 sats remained in the 90s and she is not require any oxygen at discharge. The patient was instructed to complete her antibiotic treatment for her pneumonia as well as her prednisone course and follow up with her PCP. She has been advised to stay off of work for the remaining of this week especially while she is still actively coughing. No other acute concerns noted by the patient or nursing. ASSESSMENT: Vitals: Temperature 97.4, heart rate 62, respiratory rate 18, blood pressure 146/76, O2 saturation is 95% on room air. HEENT: Extraocular movements are intact. Oral mucosa is moist. Neck is supple. Cardiac: Regular rate and rhythm. No murmurs, rubs, or gallops. Lungs are clear to auscultation, though diminished throughout. There are some mild expiratory wheezes in the bases. Abdomen is soft, nontender, nondistended. Bowel sounds normoactive. No peripheral edema noted. The patient is alert and oriented x3. No focal deficits noted. OUTPATIENT FOLLOWUP NEEDS: The patient should follow up with a PCP within 5 to 7 days for further evaluation. We also discussed obtaining PFTs as the patient states she has never done this to determine lung capacity when she is fully healed from her pneumonia. DIET: May resume previous diet. ACTIVITY: As tolerated. CONDITION: Improved, stable. DISPOSITION: To home. TIME SPENT: Time spent on this discharge is approximately 40 minutes. Again, this is only a brief summary of the patient's hospital course of stay. For full details, please refer to the full medical record. If you have any further questions or need further assistance, please feel free to contact me at . SARAH SOSA, DUSTY [id number]/[facility] #: [id number] SANTIAGO
== END 2017-11-06 13:45 | disposition home or self-care (01) | DRG 871 ==
LOC: ED 09:23 → MED 13:01
PROVIDERS: ADMIT Hospitalist; ATTEND Internal Medicine
DX: A41.9 Sepsis, unspecified organism (principal); J18.8 Other pneumonia, unspecified organism; J96.01 Acute respiratory failure with hypoxia; J44.1 Chronic obstructive pulmonary disease with (acute) exacerbation; R00.0 Tachycardia, unspecified; R01.1 Cardiac murmur, unspecified; Z79.899 Other long term (current) drug therapy; Z80.0 Family history of malignant neoplasm of digestive organs; Z82.49 Family history of ischemic heart disease and other diseases of the circulatory system; Z87.891 Personal history of nicotine dependence
CPT/HCPCS: 36415; 71020; 80048; 80053; 81003; 83605; 83880; 84484; 85025; 85730; 86140; 87040; 87502; 93005; 94640; 94760; 96372; 99213; 99284; A9270-GY; G0463; J0456; J0696; J1644; J2930; J7512

== ENCOUNTER 2018-03-06 18:42 | Inpatient (IN) | payer MEDICARE ==
[2018-03-06] MEDS ORDERED: Azithromycin IV(*) 500 MG in NS 0.9% 250 ML* 250 ML IVPB ONE (18:48)
[2018-03-06] MEDS ORDERED: Albuterol/Ipratropium NEB.SOL* Albuterol 2.5 MG/Ipratropium 0.5 MG 3 ML INH ONE (18:48)
[2018-03-06] MEDS ORDERED: cefTRIAXone(*) 1 GM in NS 0.9% 50 ML* 50 ML IVPB ONE (18:48)
[2018-03-06] MEDS ORDERED: Albuterol/Ipratropium NEB.SOL* Albuterol 2.5 MG/Ipratropium 0.5 MG 3 ML ONE (18:50)
[2018-03-06] MEDS ORDERED: NS 0.9% 1000 ML* 1,000 ML IV SCH (19:00)
[2018-03-06] MEDS ORDERED: Ondansetron INJ* 2 MG/ML VIAL IV ONE (19:16)
[2018-03-06 19:23] LABS: ABS Basophils 0 10^3/ul (0-0.2); ABS Eosinophils 0.1 10^3/ul (0-0.6); ABS Lymphocytes 0.9 10^3/ul (1.0-4.8); ABS Monocytes 0.9 10^3/ul (0-0.8); ABS Neutrophils 11.7 10^3/ul (1.5-7.7); ABS Nucleated RBC 0 10^3/ul; Eosinophil % 0.7 % (0-6); Hematocrit 38 % (35-47); Hemoglobin 12.4 g/dl (12.0-16.0); Mean Corpuscular HGB Conc 33 g/dl (31-36); Mean Corpuscular Hemoglobin 29 pg (27-31); Mean Corpuscular Volume 89 fL (80-97); Mean Platelet Volume 6.2 um3 (7.4-10.4); Nucleated Red Blood Cells % 0; Platelet Count 421 10^3/ul (150-450); Red Blood Count 4.25 10^6/ul (4.0-5.4); Red Cell Distribution Width 14 % (10.5-15); White Blood Count 13.6 10^3/ul (3.5-10.8)
[2018-03-06 19:32] LABS: INR 1.18 (0.77-1.02)
--- NOTE | 2018-03-06 19:34 | RAD ---
HISTORY: Shortness of breath, wheezing COMPARISONS: November 04, 2017 VIEWS: 1: frontal portable view of the chest at 7:03 PM FINDINGS: LINES AND TUBES: None. CARDIOMEDIASTINAL SILHOUETTE: The cardiomediastinal silhouette is normal for portable technique. PLEURA: The costophrenic angles are sharp. No pleural abnormalities are noted. LUNG PARENCHYMA: The lungs are clear. The reticulonodular pattern noted on the previous examination is not well visualized on the current examination. ABDOMEN: The upper abdomen is clear. There is no subphrenic gas. BONES AND SOFT TISSUES: No bone or soft tissue abnormalities are noted. IMPRESSION: NO ACTIVE CARDIOPULMONARY DISEASE.
[2018-03-06 19:40] LABS: EGFR Non-African American 95.2 (>60)
[2018-03-06] MEDS ORDERED: Magnesium Sulfate 2 GM IV* 2 GM/50 ML BAG IVPB ONE (20:18)
--- NOTE | 2018-03-06 20:39 | ED ---
Kyra Rodriguez Julia, scribed for Shsahi Alex MD on 03/06/18 at 1849 . Respiratory - HPI Summary HPI Summary: This patient is a 72 year old F BIBA to [facility] with a chief complaint of gradually worsening SOB and fatigue over the past few days with significant worsening today. Patient reports wheezing and productive cough with yellow sputum. Symptoms unchanged by nebulizer treatment at 13:00 today. Pt does not use O2 at home. Previous smoker. Pt reports taking a cough suppressant for the past week. EMS reports SaO2of 73%, blood glucose of 125, and use of retraction and accessory muscle use on arrival. - History of Current Complaint Stated Complaint: SOB Time Seen by Provider: 03/06/18 18:43 Hx Obtained From: Patient, EMS Onset/Duration: Gradual Onset, Lasting Days, Worse Since - today Timing: Constant Character: Wheezing, Cough (Productive), Dyspnea at Rest Sputum Color: Yellow Alleviating Factor(s): Nothing Associated Signs and Symptoms: SOB, Wheezing - Allergy/Home Medications Allergies/Adverse Reactions: Allergies Allergy/AdvReac Type Severity Reaction Status Date / Time No Known Allergies Allergy Verified 11/04/17 09:32 Home Medications: Home Medications Albuterol 2.5MG/3ML (0.083%)* [Ventolin 2.5 MG/3 ML NEB.LELA*] 2.5 mg INH BID PRN 03/06/18 [History Confirmed 03/06/18] Albuterol HFA INHALER* [Ventolin HFA Inhaler*] 2 puff INH Q4H PRN 03/06/18 [ History Confirmed 03/06/18] Benzonatate CAP* [Tessalon 100 MG CAP*] 100 mg PO TID PRN 03/06/18 [History Confirmed 03/06/18] Fluticasone HFA 110 mcg(NF) [Flovent HFA 110 mcg(NF)] 2 puff INH BID 03/06/18 [ History Confirmed 03/06/18] Umeclidin/Vilant 62.5 MDI(NF) [ANORO 62.5/25 Ellipta DEVICE (NF)] 1 puff INH DAILY 03/06/18 [History Confirmed 03/06/18] PMH/Surg Hx/FS Hx/Imm Hx Endocrine/Hematology History: Denies: Hx Anticoagulant Therapy, Hx Diabetes, Hx Thyroid Disease Cardiovascular History: Reports: Other Cardiovascular Problems/Disorders - MURMUR, HX RHEUMATIC FEVER IN YOUTH Denies: Hx Congestive Heart Failure, Hx Deep Vein Thrombosis, Hx Hypertension , Hx Myocardial Infarction, Hx Pacemaker/ICD Respiratory History: Reports: Hx Asthma, Hx Chronic Obstructive Pulmonary Disease (COPD) Denies: Hx Lung Cancer, Hx Pneumonia, Hx Pulmonary Embolism GI History: Reports: Other GI Disorders - wt loss Denies: Hx Gall Bladder Disease, Hx Gastrointestinal Bleed, Hx Ulcer, Hx Urosepsis History: Denies: Hx Kidney Stones, Hx Renal Disease Musculoskeletal History: Reports: Hx Rheumatoid Arthritis - not on meds Sensory History: Reports: Hx Contacts or Glasses Denies: Hx Hearing Aid Opthamlomology History: Reports: Hx Contacts or Glasses Neurological History: Reports: Hx Migraine Denies: Hx Dementia, Hx Seizures, Hx Transient Ischemic Attacks (TIA) Psychiatric History: Denies: Hx Anxiety, Hx Depression, Hx Schizophrenia, Hx Bipolar Disorder - Cancer History Hx Chemotherapy: No Hx Radiation Therapy: No - Surgical History Surgery Procedure, Year, and Place: tubal, teeth extraction, c section Infectious Disease History: Denies: Hx Clostridium Difficile, Hx Hepatitis, Hx Human Immunodeficiency Virus (HIV), Hx of Known/Suspected MRSA, Hx Shingles, Hx Tuberculosis, Hx Known/ Suspected VRE, Hx Known/Suspected VRSA, History Other Infectious Disease - Family History Known Family History: Positive: Cardiac Disease Negative: Hypertension - Social History Alcohol Use: None Hx Substance Use: No Substance Use Type: Reports: None Hx Tobacco Use: Yes Smoking Status (MU): Former Smoker Type: Cigarettes Amount Used/How Often: 6 cigs per day Length of Time of Smoking/Using Tobacco: 47 years Have You Smoked in the Last Year: No Review of Systems Positive: Fatigue Positive: Shortness Of Breath, Cough All Other Systems Reviewed And Are Negative: Yes Physical Exam - Summary Physical Exam Summary: General: moderate respiratory distress Skin: warm, color reflects adequate perfusion, dry Head: normal Eyes: EOMI, JAZMIN ENT: normal Neck: supple, nontender Respiratory: Bilateral expiratory wheezing Cardiovascular: Regular rhythm , tachycardic rate Abdomen: soft, nontender Bowel: present Musculoskeletal: strength/ROM intact Bilateral pedal edema Neurological: normal, sensory/motor intact, A&O x3 Psychological: affect/mood appropriate Triage Information Reviewed: Yes Vital Signs On Initial Exam: Initial Vitals Temp Pulse Resp BP Pulse Ox 98.8 F 117 29 144/109 94 03/06/18 18:46 03/06/18 18:46 03/06/18 18:46 03/06/18 18:46 03/06/18 18:46 Vital Signs Reviewed: Yes Diagnostics - Vital Signs Vital Signs Temp Pulse Resp BP Pulse Ox 03/06/18 20:18 108 33 119/79 91 03/06/18 20:00 108 20 92 03/06/18 19:48 109 21 109/75 91 03/06/18 19:00 107 26 99 03/06/18 18:55 110 96 03/06/18 18:50 95 03/06/18 18:48 127 28 95 03/06/18 18:47 116 28 92 03/06/18 18:46 98.8 F 117 29 144/109 94 - Laboratory Lab Results: Lab Results 03/06/18 03/06/18 03/06/18 Range/Units 19:12 19:12 19:12 WBC 13.6 H (3.5-10.8) 10^3/ul RBC 4.25 (4.0-5.4) 10^6/ul Hgb 12.4 (12.0-16.0) g/dl Hct 38 (35-47) % MCV 89 (80-97) fL MCH 29 (27-31) pg MCHC 33 (31-36) g/dl RDW 14 (10.5-15) % Plt Count 421 (150-450) 10^3/ul MPV 6.2 L (7.4-10.4) um3 Neut % (Auto) 85.7 H (38-83) % Lymph % (Auto) 7.0 L (25-47) % [place] % (Auto) 6.3 (0-7) % Eos % (Auto) 0.7 (0-6) % Baso % (Auto) 0.3 (0-2) % Absolute Neuts (auto) 11.7 H (1.5-7.7) 10^3/ul Absolute Lymphs (auto) 0.9 L (1.0-4.8) 10^3/ul Absolute Monos (auto) 0.9 H (0-0.8) 10^3/ul Absolute Eos (auto) 0.1 (0-0.6) 10^3/ul Absolute Basos (auto) 0 (0-0.2) 10^3/ul Absolute Nucleated RBC 0 10^3/ul Nucleated RBC % 0 INR (Anticoag Therapy) 1.18 H (0.77-1.02) APTT 33.6 (26.0-36.3) seconds D-Dimer, Quantitative < 200 (Less Than 230) ng/mL VBG pH (7.33-7.43) VBG pCO2 (41-51) mmHg VBG pO2 (35-45) mmHg VBG HCO3 (24-28) mmol/L VBG O2 Saturation (70-80) % VBG Base Excess (0-4) Sodium 139 (139-145) mmol/L Potassium 3.8 (3.5-5.0) mmol/L Chloride 102 (101-111) mmol/L Carbon Dioxide 27 (22-32) mmol/L Anion Gap 10 (2-11) mmol/L BUN 7 (6-24) mg/dL Creatinine 0.62 (0.51-0.95) mg/dL Est GFR ( Amer) 122.4 (>60) Est GFR (Non-Af Amer) 95.2 (>60) BUN/Creatinine Ratio 11.3 (8-20) Glucose 122 H (70-100) mg/dL Lactic Acid (0.5-2.0) mmol/L Calcium 8.8 (8.6-10.3) mg/dL Magnesium 1.7 L (1.9-2.7) mg/dL Total Bilirubin 0.20 (0.2-1.0) mg/dL AST 12 L (13-39) U/L ALT 10 (7-52) U/L Alkaline Phosphatase 58 (34-104) U/L Total Creatine Kinase 34 (10-223) U/L CK-MB (CK-2) 2.0 (0.6-6.3) ng/mL Troponin I 0.00 (<0.04) ng/mL C-Reactive Protein 25.27 H (< 5.00) mg/L B-Natriuretic Peptide ( - 100) pg/mL Total Protein 6.9 (6.4-8.9) g/dL Albumin 3.6 (3.2-5.2) g/dL Globulin 3.3 (2-4) g/dL Albumin/Globulin Ratio 1.1 (1-3) TSH 0.62 (0.34-5.60) mcIU/mL 03/06/18 03/06/18 03/06/18 Range/Units 19:12 19:12 19:12 WBC (3.5-10.8) 10^3/ul RBC (4.0-5.4) 10^6/ul Hgb (12.0-16.0) g/dl Hct (35-47) % MCV (80-97) fL MCH (27-31) pg MCHC (31-36) g/dl RDW (10.5-15) % Plt Count (150-450) 10^3/ul MPV (7.4-10.4) um3 Neut % (Auto) (38-83) % Lymph % (Auto) (25-47) % [place] % (Auto) (0-7) % Eos % (Auto) (0-6) % Baso % (Auto) (0-2) % Absolute Neuts (auto) (1.5-7.7) 10^3/ul Absolute Lymphs (auto) (1.0-4.8) 10^3/ul Absolute Monos (auto) (0-0.8) 10^3/ul Absolute Eos (auto) (0-0.6) 10^3/ul Absolute Basos (auto) (0-0.2) 10^3/ul Absolute Nucleated RBC 10^3/ul Nucleated RBC % INR (Anticoag Therapy) (0.77-1.02) APTT (26.0-36.3) seconds D-Dimer, Quantitative (Less Than 230) ng/mL VBG pH 7.37 (7.33-7.43) VBG pCO2 50 (41-51) mmHg VBG pO2 39 (35-45) mmHg VBG HCO3 26.5 (24-28) mmol/L VBG O2 Saturation 78.0 (70-80) % VBG Base Excess 2.7 (0-4) Sodium (139-145) mmol/L Potassium (3.5-5.0) mmol/L Chloride (101-111) mmol/L Carbon Dioxide (22-32) mmol/L Anion Gap (2-11) mmol/L BUN (6-24) mg/dL Creatinine (0.51-0.95) mg/dL Est GFR ( Amer) (>60) Est GFR (Non-Af Amer) (>60) BUN/Creatinine Ratio (8-20) Glucose (70-100) mg/dL Lactic Acid 0.6 (0.5-2.0) mmol/L Calcium (8.6-10.3) mg/dL Magnesium (1.9-2.7) mg/dL Total Bilirubin (0.2-1.0) mg/dL AST (13-39) U/L ALT (7-52) U/L Alkaline Phosphatase (34-104) U/L Total Creatine Kinase (10-223) U/L CK-MB (CK-2) (0.6-6.3) ng/mL Troponin I (<0.04) ng/mL C-Reactive Protein (< 5.00) mg/L B-Natriuretic Peptide 61 ( - 100) pg/mL Total Protein (6.4-8.9) g/dL Albumin (3.2-5.2) g/dL Globulin (2-4) g/dL Albumin/Globulin Ratio (1-3) TSH (0.34-5.60) mcIU/mL Result Diagrams: 03/06/18 19:12 03/06/18 19:12 Lab Statement: Any lab studies that have been ordered have been reviewed, and results considered in the medical decision making process. - Radiology CXR Radiology Interpretation Completed By: Radiologist - NO ACTIVE CARDIOPULMONARY DISEASE. ED Physician has reviewed this report. - EKG 1848 Cardiac Rate: Tachycardia EKG Rhythm: Sinus Tachycardia - 103 BPM Ectopy: None EKG Interpretation: minimal ST depression in inferior leads Re-Evaluation - Re-Evaluation 1 Re-Evaluation Time: 20:17 Comment: Pt informed of results. Pt agrees to admission. Disposition - Course Course Of Treatment: IMPROVED IN ED AFTER DUONEBS. DECADRON BY EMS. DISCUSSED RESULTS WITH PATIENT. O2 SATS 90% ON 2LITERS, STILL TACHYCARDIC; ADMIT HOSPITALIST. CRITICAL CARE TIME LESS THAN 30 MINUTES. - Diagnoses Provider Diagnoses: COPD (chronic obstructive pulmonary disease), Bronchitis, Hypoxia - Physician Notifications Discussed Care Of Patient With: Tootie Bhardwaj - hospitalist Time Discussed With Above Provider: 20:35 Instructed by Provider To: Admit As Inpatient Discharge - Sign-Out/Discharge Documenting (check all that apply): Discharge/Admit/Transfer - Discharge Plan Condition: Stable Disposition: ADMITTED TO [facility] Referrals: King Roberson [Primary Care Provider] - - Billing Disposition and Condition Condition: STABLE Disposition: [facility] [place] The documentation as recorded by the Kyra onofre Julia accurately reflects the service I personally performed and the decisions made by me, Shashi Alex MD.
[2018-03-06] MEDS ORDERED: Acetaminophen TAB* 325 MG PO PRN (21:49)
[2018-03-06] MEDS: Albuterol 2.5 MG/3 ML NEB.SOL* (0.083%) INH SCH (22:37)
--- NOTE | 2018-03-06 23:04 | HP ---
CC: MIRIAM Jonas * HISTORY AND PHYSICAL: DATE OF ADMISSION: 03/06/18 PRIMARY CARE PROVIDER: MIRIAM Jonas CHIEF COMPLAINT: Shortness of breath. HISTORY OF PRESENT ILLNESS: Ms. Arias is a 72-year-old female who has a history of COPD and a diagnosis of pneumonia in November 2017, who presents to the emergency room with complaints of shortness of breath. The patient states following her November admission, her Symbicort had been changed to Anoro and Flovent, and with this she states that she had felt quite well up until approximately 3 weeks ago. The patient developed a cold at that time. She began taking Tessalon Perles as well as Coricidin. She did not realize that she was taking both cough suppressants. She felt that it made her breathing much tighter. She states over the last few days, her breathing got tighter and tighter and she was no longer able to walk short distances. The patient states that just going from her living room to her bathroom, she had a hard time breathing and walking approximately 30 feet from her front door to her daughter' s car to come to the emergency room, she had a near syncopal episode. The patient denies any significant sputum production. She does have cough. She has had no fever, but has had sweats. PAST MEDICAL HISTORY: 1. COPD. 2. History of rheumatic fever at the age of 17. PAST SURGICAL HISTORY: 1. Tubal ligation. 2. . 3. Teeth extraction. MEDICATIONS: 1. Flovent 2 puffs inhaled twice daily. 2. Tessalon 100 mg p.o. t.i.d. p.r.n. cough. 3. Albuterol 2 puffs inhaled q.4 hours p.r.n. shortness of breath. 4. Albuterol 1 neb inhaled twice daily p.r.n. shortness of breath. 5. Anoro Ellipta 62.5/25, 1 puff inhaled daily. ALLERGIES: No known drug allergies. FAMILY HISTORY: Mom at the age of 60 of liver cancer. Dad at the age of 62 of DE. SOCIAL HISTORY: The patient is a former smoker, she quit approximately 7 years ago. She has a [id number] history of smoking. She does not drink alcohol. She works as a tractor trailer driver. She is . She has 5 children. She indicates that her is her healthcare proxy. REVIEW OF SYSTEMS: A complete 11-system review of systems is obtained. Pertinent positives and negatives are as per HPI and in addition, the patient does complain of poor appetite over the last few weeks and diffuse joint pain related to her history of osteoarthritis. Otherwise, the review of systems is negative. PHYSICAL EXAMINATION GENERAL: The patient is a well-developed elderly female, seen sitting up in the stretcher, appearing to be in no acute distress. VITAL SIGNS: Blood pressure 116/68, pulse 108, respirations 22, temp 98.8, O2 sat 93% on 2 L. The patient reportedly had an O2 saturation in the 70s on room air when EMS arrived to her home. HEENT: Pupils are equal and round. Extraocular muscles are intact. Oropharynx is clear. Oral mucosa is moist. There is no submandibular, cervical or supraclavicular adenopathy. Thyroid is not enlarged. No thyroid nodules noted. The patient wears upper and lower dentures. PULMONARY: Breath sounds are diminished in all lung brock. There are a few crackles at the bases bilaterally. CARDIAC: Normal S1, S2. Regular rate and rhythm. I do not appreciate any murmurs. There is no lower extremity edema. ABDOMEN: Bowel sounds present. Abdomen is soft, nontender, nondistended. MUSCULOSKELETAL: There is no cyanosis or clubbing of the digits. There is full active range of motion of all 4 extremities. NEUROLOGIC: Cranial nerves II through XII are grossly intact. Sensation is intact to light touch throughout. Strength is 5/5 and symmetric in both upper and lower extremities bilaterally. SKIN: Warm and dry. There are no rashes. PSYCH: The patient is alert. She is oriented x3. Affect appears appropriate. LABORATORY DATA: WBC 13.6, hemoglobin 12.4, hematocrit 38, platelets 421,000. INR 1.18. D-dimer less than 200. Sodium 139, potassium 3.8, chloride 102, CO2 of 27, BUN 7, creatinine 0.62, glucose 122, lactic acid 0.6, calcium 8.8, magnesium 1.7, bilirubin 0.2, AST 12, ALT 10, alk phos 58. CPK 34. CK-MB 2. Troponin 0. CRP 25.27. BNP 61. Albumin 3.6. TSH 0.62. Procalcitonin pending. EKG reveals sinus tachycardia with minimal ST depression in the inferior leads. Chest x-ray: No active cardiopulmonary disease. ASSESSMENT AND PLAN: Ms. Arias is a 72-year-old female who presented to the emergency room with complaints of shortness of breath in the setting of having known chronic obstructive pulmonary disease. 1. Chronic obstructive pulmonary disease exacerbation. The patient is admitted for chronic obstructive pulmonary disease exacerbation with acute hypoxic respiratory failure. The patient's O2 saturation was reportedly in the 70s by EMS when they arrived to her home. She was not on any oxygen at that point. With 2 L of oxygen, the patient's O2 saturations are still marginal in the low 90s. The patient will be admitted to the medical floor where she will receive nebulizer treatments every 4 hours, Solu-Medrol 40 mg IV every 8 hours, and ceftriaxone and azithromycin for possible pneumonia. I have ordered a procalcitonin. If this is negative, the antibiotics could be considered to be discontinued. I suspect the patient will need 2 to 3 days under an inpatient stay to recover. She does have a mild leukocytosis and this will need to be monitored. I will not be surprised; however, if this goes up with the addition of the IV steroids. 2. DVT prophylaxis. According to the Adult Thrombosis Prophylaxis Risk Factor Assessment Guide, the patient has a total risk factor score of 2 making her moderate risk. Heparin 5000 units subcutaneous q.8 hours will be utilized as DVT prophylaxis. 3. Code status is DNR with a trial of intubation. TIME SPENT: 65 minutes were spent admitting this patient. [id number]/[facility] #: [id number] MTDD
[2018-03-07] MEDS: Heparin VIAL(*) 5000 UNITS/ML VIAL (FIVE THOUSAND) SUBCUT SCH ×4 (00:20→21:17)
[2018-03-07] MEDS: NS 0.9% 1000 ML* 1,000 ML IV SCH ×2 (00:22→10:36)
[2018-03-07] MEDS: methylPREDNISolone SOD 40 MG* 1 ML VIAL IV SCH ×3 (00:27→17:53)
[2018-03-07] MEDS: Albuterol 2.5 MG/3 ML NEB.SOL* (0.083%) INH SCH ×5 (03:15→20:29)
[2018-03-07 06:37] LABS: Hematocrit 36 % (35-47); Hemoglobin 11.9 g/dl (12.0-16.0); Mean Corpuscular HGB Conc 33 g/dl (31-36); Mean Corpuscular Hemoglobin 29 pg (27-31); Mean Corpuscular Volume 89 fL (80-97); Mean Platelet Volume 6.2 um3 (7.4-10.4); Platelet Count 417 10^3/ul (150-450); Red Blood Count 4.05 10^6/ul (4.0-5.4); Red Cell Distribution Width 14 % (10.5-15); White Blood Count 9.8 10^3/ul (3.5-10.8)
[2018-03-07 06:52] LABS: EGFR Non-African American 111.6 (>60)
--- NOTE | 2018-03-07 14:25 | PN ---
Subjective Date of Service: 03/07/18 Interval History: Ms. Arias reports feeling a bit better now but remains short of breath with ambulation to the bathroom. She denies chest pain, nausea, or abdominal pain. She is tolerating oral intake well. Objective Active Medications: Acetaminophen (Tylenol Tab*) 650 mg PO Q4H PRN Albuterol (Ventolin 2.5 Mg/3 Ml Neb.Shira*) 2.5 mg INH [id number] AWAKE [facility] Heparin Sodium (Porcine) (Heparin Vial(*)) 5,000 units SUBCUT Q8HR [facility] Sodium Chloride (Ns 0.9% 1000 Ml*) 1,000 mls @ 150 mls/hr IV PER RATE [facility] Sodium Chloride (Ns 0.9% 1000 Ml*) 1,000 mls @ 100 mls/hr IV PER RATE [facility] Methylprednisolone Sodium Succinate (Solu-Medrol 40 Mg) 40 mg IV Q8H [facility] Vital Signs: Temp Pulse Resp BP Pulse Ox 97.9 F 92 16 123/66 97 03/07/18 07:00 03/07/18 12:57 03/07/18 12:57 03/07/18 07:00 03/07/18 12:57 Oxygen Devices in Use Now: Nasal Cannula Appearance: Female sitting in bed, short of breath after returning from bathroom but recovers quickly Eyes: No Scleral Icterus Ears/Nose/Mouth/Throat: Mucous Membranes Moist Neck: Trachea Midline Respiratory: Symmetrical Chest Expansion and Respiratory Effort, - - Expiratory wheezing bilaterally Cardiovascular: No Edema Abdominal: NL Sounds; No Tenderness; No Distention Lymphatic: No Cervical Adenopathy Extremities: No Edema Skin: No Rash or Ulcers Neurological: Alert and Oriented x 3, NL Muscle Strength and Tone Nutrition: Taking PO's Result Diagrams: 03/07/18 06:13 03/07/18 06:13 Additional Lab and Data: . Assess/Plan/Problems-Billing Assessment: Ms. Arias is a 72 yo female with a PMH of COPD who was admitted on 03/06/18 with COPD exacerbation. - Patient Problems (1) COPD (chronic obstructive pulmonary disease) Comment: - Improving slowly. - Continue solumedrol, nebulizers. O2 as needed, wean when able. - Hold Anora and fluticasone. Patient has had PFTs outpatient but has not seen pulmonogy, may benefit from appt at discharge. - O2 as needed, wean when able (2) DVT prophylaxis Comment: SQ heparin (3) DNR (do not resuscitate) Status and Disposition: Inpatient. Anticipate discharge to home when medically stable.
[2018-03-08] MEDS: Albuterol 2.5 MG/3 ML NEB.SOL* (0.083%) INH SCH ×6 (00:48→19:41)
[2018-03-08] MEDS: methylPREDNISolone SOD 40 MG* 1 ML VIAL IV SCH ×3 (00:53→15:13)
[2018-03-08] MEDS: Heparin VIAL(*) 5000 UNITS/ML VIAL (FIVE THOUSAND) SUBCUT SCH ×3 (07:38→22:16)
--- NOTE | 2018-03-08 11:53 | PN ---
Subjective Date of Service: 03/08/18 Interval History: Continues to have shortness of breath at rest and with exertion. Denies chest pain. Denies abd pain or n/v/d. Family History: Unchanged from Admission Social History: Unchanged from Admission Past Medical History: Unchanged from Admission Objective Active Medications: Acetaminophen (Tylenol Tab*) 650 mg PO Q4H PRN PRN Reason: PAIN Last Admin: 03/07/18 04:05 Dose: 650 mg Albuterol (Ventolin 2.5 Mg/3 Ml Neb.Shira*) 2.5 mg INH [id number] AWAKE [facility] Last Admin: 03/08/18 10:31 Dose: 2.5 mg Heparin Sodium (Porcine) (Heparin Vial(*)) 5,000 units SUBCUT Q8HR [facility] Last Admin: 03/08/18 07:38 Dose: 5,000 units Methylprednisolone Sodium Succinate (Solu-Medrol 40 Mg) 40 mg IV Q8H [facility] Last Admin: 03/08/18 07:37 Dose: 40 mg Vital Signs - 8 hr 03/08/18 03/08/18 03/08/18 06:29 07:51 07:52 Temperature 97.7 F Pulse Rate 88 79 Respiratory 16 20 20 Rate Blood Pressure 127/60 (mmHg) O2 Sat by Pulse 99 96 Oximetry 03/08/18 10:33 Temperature Pulse Rate 99 Respiratory 20 Rate Blood Pressure (mmHg) O2 Sat by Pulse 97 Oximetry Oxygen Devices in Use Now: Nasal Cannula Appearance: appears moderately short of breath at resting lying in bed. alert and awake Eyes: No Scleral Icterus Ears/Nose/Mouth/Throat: Clear Oropharnyx, Mucous Membranes Moist Neck: NL Appearance and Movements; NL JVP, Trachea Midline Respiratory: Symmetrical Chest Expansion and Respiratory Effort, Clear to Auscultation, - - diminshed t/o bilat Cardiovascular: NL Sounds; No Murmurs; No JVD Abdominal: NL Sounds; No Tenderness; No Distention Extremities: No Edema, No Clubbing, Cyanosis Skin: No Rash or Ulcers, No Nodules or Sclerosis Neurological: Alert and Oriented x 3 Nutrition: Taking PO's Result Diagrams: 03/07/18 06:13 03/07/18 06:13 Additional Lab and Data: . Assess/Plan/Problems-Billing Assessment: Ms. Arias is a 72 yo female with a PMH of COPD who was admitted on 03/06/18 with COPD exacerbation. - Patient Problems (1) COPD (chronic obstructive pulmonary disease) Current Visit: No Status: Chronic Code(s): J44.9 - CHRONIC OBSTRUCTIVE PULMONARY DISEASE, UNSPECIFIED SNOMED Code(s): 12142493 Comment: - Continues to have shortness of breath at rest and with excertion- non productive cough - Continue solumedrol, nebulizers. O2 as needed, wean when able. Will add duo neds as patient has some mild resting shortness of breath - Hold Anora and fluticasone. - Patient has had PFTs outpatient but has not seen pulmonology, may benefit from appt at discharge. - O2 as needed, wean when able (2) DNR (do not resuscitate) Current Visit: Yes Status: Acute (3) DVT prophylaxis Current Visit: No Status: Acute Code(s): GOL7371 - SNOMED Code(s): 944745064 Comment: SQ heparin Status and Disposition: Inpatient. Anticipate discharge to home when medically stable.
[2018-03-09] MEDS: methylPREDNISolone SOD 40 MG* 1 ML VIAL IV SCH ×3 (00:01→17:29)
[2018-03-09] MEDS: Albuterol 2.5 MG/3 ML NEB.SOL* (0.083%) INH SCH ×6 (00:52→20:26)
[2018-03-09] MEDS: Heparin VIAL(*) 5000 UNITS/ML VIAL (FIVE THOUSAND) SUBCUT SCH ×3 (05:39→21:37)
--- NOTE | 2018-03-09 14:39 | PN ---
Subjective Date of Service: 03/09/18 Interval History: Patient was seen and examined at bedside. Reports feeling better overall, but still gets "winded" with a little exertion. Denies dyspnea at rest, orthopnea, wheezing or productive cough. No chest pain or palpitations. Denies fever or chills. Family History: Unchanged from Admission Social History: Unchanged from Admission Past Medical History: Unchanged from Admission Objective Active Medications: Acetaminophen (Tylenol Tab*) 650 mg PO Q4H PRN PRN Reason: PAIN Last Admin: 03/07/18 04:05 Dose: 650 mg Albuterol (Ventolin 2.5 Mg/3 Ml Neb.Shira*) 2.5 mg INH [id number] AWAKE [facility] Last Admin: 03/09/18 14:12 Dose: 2.5 mg Heparin Sodium (Porcine) (Heparin Vial(*)) 5,000 units SUBCUT Q8HR [facility] Last Admin: 03/09/18 05:39 Dose: 5,000 units Methylprednisolone Sodium Succinate (Solu-Medrol 40 Mg) 40 mg IV Q8H [facility] Last Admin: 03/09/18 08:42 Dose: 40 mg Vital Signs - 8 hr 03/09/18 03/09/18 03/09/18 07:24 07:25 07:37 Temperature 97.5 F Pulse Rate 70 65 Respiratory 20 Rate Blood Pressure 137/75 (mmHg) O2 Sat by Pulse 98 98 97 Oximetry 03/09/18 03/09/18 08:00 14:13 Temperature Pulse Rate 80 Respiratory 16 Rate Blood Pressure (mmHg) O2 Sat by Pulse 94 Oximetry Oxygen Devices in Use Now: Nasal Cannula Appearance: Sitting up on her bed, watching TV, appears comfortable and in NAD. Eyes: No Scleral Icterus, PERRLA Ears/Nose/Mouth/Throat: Clear Oropharnyx, Mucous Membranes Moist Neck: NL Appearance and Movements; NL JVP, Trachea Midline Respiratory: Symmetrical Chest Expansion and Respiratory Effort, - - Minimal bibasilar rhonchi noted, no rales or wheezes. Cardiovascular: NL Sounds; No Murmurs; No JVD, RRR Abdominal: NL Sounds; No Tenderness; No Distention Extremities: No Edema, No Clubbing, Cyanosis Skin: No Rash or Ulcers Neurological: Alert and Oriented x 3 Nutrition: Taking PO's Result Diagrams: 03/07/18 06:13 03/07/18 06:13 Additional Lab and Data: . Assess/Plan/Problems-Billing Assessment: Ms. Arias is a 72 yo female with a PMH of COPD who was admitted on 03/06/18 with COPD exacerbation, improving slowly. - Patient Problems (1) COPD (chronic obstructive pulmonary disease) Current Visit: No Status: Chronic Code(s): J44.9 - CHRONIC OBSTRUCTIVE PULMONARY DISEASE, UNSPECIFIED SNOMED Code(s): 39082184 Comment: - Continues to have shortness of breath with excertion- non-productive cough improving. - Continue solumedrol, nebulizers. - Hold Anora and fluticasone. - Patient has had PFTs outpatient but has not seen pulmonology, may benefit from appt at discharge. - O2 as needed, wean when able (2) DVT prophylaxis Current Visit: No Status: Acute Code(s): CDW7250 - SNOMED Code(s): 046461107 Comment: SQ heparin (3) Full code status Current Visit: Yes Status: Acute Code(s): Z78.9 - OTHER SPECIFIED HEALTH STATUS SNOMED Code(s): 894865334 Status and Disposition: Inpatient. Anticipate discharge to home when medically stable.
[2018-03-10] MEDS: methylPREDNISolone SOD 40 MG* 1 ML VIAL IV SCH ×2 (00:12→08:27)
[2018-03-10] MEDS: Albuterol 2.5 MG/3 ML NEB.SOL* (0.083%) INH SCH ×3 (00:57→14:29)
[2018-03-10] MEDS: Heparin VIAL(*) 5000 UNITS/ML VIAL (FIVE THOUSAND) SUBCUT SCH ×2 (06:09→13:44)
[2018-03-10 12:38] VITALS: BP 133/77
--- NOTE | 2018-03-11 00:11 | DS ---
AMENDED REPORT NOW INCLUDES COSIGNER DESIGNATION - ESIGNED BEFORE ADJUSTMENT CC: Dr. Brunner* DISCHARGE SUMMARY: DATE OF ADMISSION: 03/06/18 DATE OF DISCHARGE: 03/10/18 ATTENDING HOSPITALIST: Carlos Enrique Ding MD * (DICTATED BY MIRIAM ARROYO) ADMITTING PHYSICIAN: Tootie Bhardwaj DO PRIMARY CARE PROVIDER: MIRIAM Jonas ADMISSION DIAGNOSIS: Chronic obstructive pulmonary disease exacerbation. DISCHARGE DIAGNOSIS: Chronic obstructive pulmonary disease exacerbation. CONSULTATIONS: None. HISTORY OF PRESENT ILLNESS: Ms. Arias is a pleasant 72-year-old female who has longstanding history of COPD with a diagnosis of pneumonia back in November of this year. She presented to the emergency room a few days ago with complaints of worsening shortness of breath. She states that following her November admission for which she was treated for pneumonia, her Symbicort has been changed by her primary care physician to Anoro and Flovent, which she has been doing quite well using both for the past 3 weeks. She developed some upper respiratory infection symptoms a few days prior to her admission and she started to have increased dyspnea at rest and nonproductive cough. She started to feel short of breath with minimal exertion and eventually showed up in the emergency room for further evaluation. She denies any fever, chills or any other associated symptoms. She had chest x-ray done in the ED that showed no significant changes. She felt better using supplemental oxygen and a decision was made for her to be admitted for COPD exacerbation. She also had EKG that revealed sinus tachycardia with minimal ST depressions with no significant changes. HOSPITAL COURSE: The patient was admitted under medical services with diagnosis of COPD exacerbation. She had also acute hypoxic respiratory failure that showed improvement with oxygen supplementation. Her O2 sats were reportedly in the 70s by her EMS when they arrived at home. The patient has never been on any home oxygen prior to this admission. She was given nebulizer treatment every 6 hours as well as Solu-Medrol 40 mg every 8 hours. She was started prophylactically on azithromycin and ceftriaxone for possible pneumonia ; however, repeated chest x-ray showed no evidence of such and eventually her antibiotics were discontinued after procalcitonin was found to be negative as well. She continued to improve on a daily basis during her admission. She maintained a good oxygen saturation with 2 L oxygen; however, every time there was an attempt to wean her off oxygen, the patient rapidly started to complain of shortness of breath with minimal exertion. She denied any dyspnea at rest or orthopnea. She was covered prophylactically for DVT using heparin subcu every 8 hours. She continued to improve slowly and on discharge day she was alert, oriented and maintained good oxygen saturation. An attempt for oxygen wean off was done; however, the patient's sats dropped to 87% with exertion and rapidly improved to the mid 90s with oxygen supplementation. I discussed with her discharge to home on home oxygen since she met the criteria for it. The case was discussed with residential case manager and paperwork was held with [employer] to provide home oxygen. We will also plan on discharging her with prednisone tapered dose until followup with her primary care physician. I also recommended followup with Dr. Brunner since the patient has never been followed by a specialist in matters of her COPD exacerbation. The patient is agreeable and all discharge instructions were discussed with her in detail. She will be discharged to home today and will be seen by Dr. Brunner and primary care physician in the next week or 2. DISCHARGE MEDICATIONS: Include: 1. Ventolin nebulizer 2.5 mg/3 mL twice daily. 2. Albuterol MDI 2 puffs q.4 hours as needed for shortness of breath. 3. Tessalon caps 100 mg p.o. t.i.d. 4. Flovent MDI 2 puffs inhaler b.i.d. 5. Prednisolone 20 mg tablet on a tapered dose starting at 60 mg for 2 days, then 40 mg for 2 days, then 20 mg for 2 days, then 10 mg for 2 days, then discontinue. 6. Anoro 62.5/25 MDI inhaler 1 puff daily. PROBLEM LIST: COPD exacerbation. The patient was discharged to home in a stable condition to resume her regular inhalers as well as a tapered dose of p.o. prednisone as well as home oxygen and she will be reevaluated by primary care physician and also recommended a Pulmonology consultation in the next week or 2. MIRIAM ARROYO [id number]/[facility] #: [id number] [place]
== END 2018-03-10 15:22 | disposition home or self-care (01) | DRG 190 ==
LOC: ED 18:42 → MEDTELE 21:49 → SSU 03-07 23:55
PROVIDERS: ADMIT Hospitalist; ATTEND Internal Medicine
DX: J44.1 Chronic obstructive pulmonary disease with (acute) exacerbation (principal); J96.01 Acute respiratory failure with hypoxia; Z79.899 Other long term (current) drug therapy; Z80.0 Family history of malignant neoplasm of digestive organs; Z82.49 Family history of ischemic heart disease and other diseases of the circulatory system; Z87.891 Personal history of nicotine dependence; Z66 Do not resuscitate
CPT/HCPCS: 36415; 71045; 80048; 80053; 82550; 82553; 82803; 83605; 83735; 83880; 84145; 84443; 84484; 85025; 85027; 85379; 85610; 85730; 86140; 87040; 93005; 94640; 94664; 99285; A9270-GY; J0456; J0696; J1644; J2405; J2920; J3475